=== PATIENT | female | born 1940 | race Caucasian/White ===

== ENCOUNTER → 2023-09-03 08:36 | Outpatient (REF) | payer OTHER, SELFPAY ==
[2023-09-03 09:56] LABS: ALT (SGPT) 17 U/L (0-35); AST (SGOT) 21 U/L (14-36); Albumin 3.5 g/dl (3.5-5.0); Alkaline Phosphatase 50 U/L (38-126); Blood Urea Nitrogen 14 mg/dl (7-17); Calcium 9.4 mg/dl (8.4-10.2); Carbon Dioxide 30 mmol/L (22-30); Chloride 100 mmol/L (98-107); Glucose 95 mg/dl (70-99); Sodium 140 mmol/L (135-145); Total Bilirubin 0.8 mg/dl (0.2-1.3); Total Protein 5.9 g/dl (6.3-8.2); eGFR > 60.00
== END ==
LOC: REG 08:36
PROVIDERS: ATTENDING PHYSICIAN Nurse Practitioner Family; FAMILY PHYSICIAN Family Medicine
DX: E11.40 Type 2 diabetes mellitus with diabetic neuropathy, unspecified (principal)
CPT/HCPCS: 36415; 80053

== ENCOUNTER → 2023-10-04 11:42 | Outpatient (REF) | payer OTHER, SELFPAY ==
[2023-10-04 15:35] LABS: Erythrocyte Sed Rate 11 mm/hour (0-20)
[2023-10-05 15:21] LABS: Angiotensin-1-converting Enzym 59 U/L (16-85)
== END ==
LOC: REG 11:42
PROVIDERS: ATTENDING PHYSICIAN Ophthalmology; FAMILY PHYSICIAN Family Medicine
DX: H47.293 Other optic atrophy, bilateral (principal)
CPT/HCPCS: 36415; 82164; 85652

== ENCOUNTER → 2023-11-21 11:29 | Outpatient (REF) | payer OTHER, SELFPAY | LOC: RAD 11:29 | PROVIDERS: ATTENDING PHYSICIAN Family Medicine | DX: R10.30 Lower abdominal pain, unspecified (principal); R10.9 Unspecified abdominal pain | CPT/HCPCS: 74177; Q9967 ==

== ENCOUNTER → 2023-12-16 09:58 | Outpatient (REF) | payer OTHER, SELFPAY | LOC: PET 09:58 | PROVIDERS: ATTENDING PHYSICIAN Family Medicine | DX: R91.1 Solitary pulmonary nodule (principal) | CPT/HCPCS: 78815; A9552 ==

== ENCOUNTER 2024-03-09 00:28 | Inpatient (IN) | payer OTHER, SELFPAY ==
[2024-03-08] VITALS (7 sets, daily range): BP systolic 106–151; BP diastolic 63–72; BMI 25.3
[2024-03-08 19:40] LABS: % Basophils 0.7 % (0-2); % Eosinophils 1.9 % (0-6); % Immature Granulocytes 0.7 % (0-0.5); % Monocytes 6.4 % (1.7-9.3); % Neutrophils 72.3 % (42.2-75.2); Absolute Basophils 0.1 10^3/uL (0-0.2); Absolute Eosinophils 0.2 10^3/uL (0-0.7); Absolute Immature Granulocytes 0.1 10^3/uL (0-0.05); Absolute Monocytes 0.7 10^3/uL (0.1-0.6); Absolute Neutrophils 7.9 10^3/uL (1.4-6.5); Hematocrit 37.1 % (37.0-47.0); Hemoglobin 13.3 g/dL (12.0-16.0); Mean Corp Hgb Conc. 35.8 g/dL (33.0-37.0); Mean Corpuscular Hgb 30.1 pg (27.0-31.0); Mean Corpuscular Volume 83.9 fL (81.0-99.0); Mean Platelet Volume 10.5 fL (7.4-10.4); Nucleated Red Blood Cells % 0 %; Platelet Count 237 10^3/uL (130-400); Red Blood Cell Count 4.42 10^6/uL (4.20-5.40); Red Cell Dist. Width 13.1 % (11.5-14.5); White Blood Cell Count 10.9 10^3/uL (4.8-10.8)
[2024-03-08 19:53] LABS: ALT (SGPT) 20 U/L (0-35); AST (SGOT) 36 U/L (14-36); Albumin 3.9 g/dl (3.5-5.0); Alkaline Phosphatase 47 U/L (38-126); Blood Urea Nitrogen 22 mg/dl (7-17); Calcium 9.7 mg/dl (8.4-10.2); Carbon Dioxide 23 mmol/L (22-30); Chloride 100 mmol/L (98-107); Estimated Creatinine Clearance 59 ml/min; Glucose 269 mg/dl (70-99); Lipase 52 U/L (23-300); Potassium 4.5 mmol/L (3.5-5.1); Sodium 136 mmol/L (135-145); Total Bilirubin 0.8 mg/dl (0.2-1.3); eGFR > 60.00
[2024-03-08] MEDS: ZOFRAN 4 MG IV (20:01)
[2024-03-08] MEDS: MORPHINE SULFATE 4 MG IV (20:03)
[2024-03-08 20:06] LABS: NT-proBNP 156 pg/ml; Troponin I < 0.012 ng/ml
[2024-03-08] MEDS: PROTONIX IV 40 MG IV (20:06)
--- NOTE | 2024-03-08 20:07 | ED.GENMED ---
History of Present Illness
General
Chief Complaint: Chest Pain
Source: patient
Exam Limitations: none
Time Seen by Provider: 03/08/24 19:10
Nursing documentation reviewed up to this point in time: agreed with
History of Present Illness
History of Present Illness:
83-year-old female history diabetes, presents with chest pain onset last evening after eating chicken pressure in her chest, some nausea into her armpits, today she ate normally felt okay but symptoms returned again after eating chicken, she feels
bloated has not had a bowel movement about a week, still has her gallbladder, no history of CAD, no fever or chills,
Past History
Past History
ED Past Medical History: HTN, Hypercholesterolemia, IDDM and Other (Rheumatoid arthritis, GI bleeding, Pleural effusion,)
ED Past Surgical History: Appendectomy and Gynecological (Hysterectomy); Negative Cholecystectomy
Social History
Tobacco: Non-smoker
Alcohol: None
Drug: None
Personal:
Living: alone
Employment: Retired
Family History
Family History: Other (Daughter with colon cancer. Daughter with lung cancer)
Review of Systems
Review of Systems
All Other Systems: Not applicable
Constitutional: Denies fever or fatigue
EENT: Reports no symptoms
Respiratory: Reports no symptoms; Denies cough or trouble breathing
Cardiac: Reports chest pain; Denies palpitations
ABD/GI: Reports abdominal pain and constipated; Denies nausea, diarrhea or black stools
: Reports no symptoms
Musculoskeletal: Reports no symptoms
Skin: Reports no symptoms
Neurological: Reports no symptoms
Endocrine: Reports no symptoms
Phy Exam
Physical Exam
Physical Exam:
Physical Exam
General: no apparent distress, not acutely ill
Neck: No jaundice
Heart: s1/s2 regular rate and rhythm, no murmur. equal radial pulses.
Lungs: no acute respiratory distress. clear bilaterally
Abdomen: Mild epigastric tenderness
Neuro: alert and oriented. no focal neurological deficits
Skin: no rash
Psychiatric: well kept. interactive and cooperative
Extremities: no edema. no calf tenderness.
Scores
Heart Score for Chest Pain Patients
STEMI patient?: No
History: Moderately Suspicious
ECG: Nonspecific Repolarization
Age: >/= 65 years
Risk Factors: 1 or 2 Risk Factors
Troponin: </= Normal Limit
Heart Score for Chest Pain Patients: 5
Heart Score Risk: 20.3% MACE over next 6 weeks
Course
Orders/Labs/Results
Orders:
Orders
03/08/24 19:04
Electrocardiogram (*1) Urgent
Reason for Study: Other
Other Reason for Exam: Respiratory Distress
Cardiac Monitoring- Treatment ONCE
EKG- Treatment ONCE
IV Insert/Care/Rem.- Treatment PRN
CR Chest - 2 Views Urgent
Comment:
Reason For Exam: respiratory distress
O2 Therapy [RESP] Urgent
Titrate/Wean O2 to maintain O2 sat greater than (%): 93
Special Instructions: TO MAINTAIN CONTINUOUS O2 SATS >/= 93%
Pulse Ox/cont/shift [RESP] Urgent
Quantity: 1
Special Instructions: continuous pulse ox
03/08/24 19:18
Complete Blood Count/With Diff Urgent
Comprehensive Metabolic Panel Urgent
Lipase Urgent
NT-proBNP Urgent
Troponin I Urgent
03/08/24 19:32
Add On- LAB Urgent
Tests Added?: lipase
03/08/24 19:44
Morphine Sulfate 4 mg IV NOW STA
Ondansetron Injectable [Zofran] 4 mg IV NOW STA
Pantoprazole [Protonix IV] 40 mg IV NOW STA
03/08/24 20:41
Iohexol [Omnipaque] See Protocol PO NOW STA
03/08/24 22:39
Troponin I Urgent
03/08/24 23:11
Electrocardiogram (*1) Urgent
Reason for Study: Chest Pain
EKG- Treatment ONCE
03/08/24 23:12
Aspirin 325 mg PO NOW STA
Heparin 4,000 units IV NOW STA
03/08/24 23:[address] See Dose Instructions PO NOW STA
Discontinue all Active Warfarin orders?: Yes
Nursing to Place Non Medication Order As Directed
Physician Order: PTT 6 hours after initial start of Heparin infusion
Above order entered?: Yes
03/08/24 23:15
Heparin 37095 Units/250 ml 25,000 units in 250 ml IV PER PROTOCOL
Weight to be used for heparin protocol in kilograms (kg):: 73.2
Protocol:: Cardiac Tx/Acute Coronary
PTT Goal Range to be used:: PTT 73 to 111 seconds
Order type:: Initial
INITIAL Infusion Dose (UNITS/KG/hr) & then follow protocol:: 12 units/kg/hr
Infusion Dose in UNITS/hr & then follow protocol (UNITS/hr):: 900
INFUSION RATE in mL/hr & then follow protocol (mL/hr):: 9
PTT less than or equal to 64 seconds:: Increase rate by 200 units/hr (+ 2 mL/hr)
PTT 64.1 to 72.9 seconds:: Increase rate by 100 units/hr (+ 1 mL/hr)
PTT 73 to 111 seconds:: Target Range. No change in rate.
PTT 111.1 to 130.9 seconds:: Decrease rate by 100 units/hr (- 1 mL/hr)
PTT 131 to 199.9 seconds:: HOLD for 1 hr. Then decrease rate by 200 units/hr (- 2 mL/hr)
PTT greater than or equal to 200 seconds:: HOLD for 2 hrs & Notify Provider. Then decrease by 200 units/hr (-
2 mL/hr)
Lab follow-up:: Each change, PTT q6h until 2 consecutive are therapeutic. Then PTT
daily.
03/08/24 23:24
PTT Urgent
Comment: Obtain baseline before beginning heparin infusion if not already collected
03/08/24 23:[address] See Dose Instructions IV DIRECTED
Abnormal Lab Results
03/08/24 03/08/24
19:18 22:39
WBC 10.9 H 10^3/uL
(4.8-10.8)
MPV 10.5 H fL
(7.4-10.4)
Abs Immat Gran (auto) 0.1 H 10^3/uL
(0-0.05)
Absolute Neuts (auto) 7.9 H 10^3/uL
(1.4-6.5)
Absolute Monos (auto) 0.7 H 10^3/uL
(0.1-0.6)
Immature Gran % 0.7 H %
(0-0.5)
Lymphocytes % 18.0 L %
(20.5-51.1)
BUN 22 H mg/dl
(7-17)
Glucose 269 H mg/dl
(70-99)
Troponin I 0.223 H* D ng/ml
Total Protein 6.0 L g/dl
(6.3-8.2)
03/08/24 19:18
03/08/24 19:18
Vital Signs
Initial and Last Documented VS:
Initial Vital Signs
BP
121/71
03/08/24 19:08
Last Documented Vital Signs
Temp Pulse Resp BP Pulse Ox
99.0 F 75 26 131/71 95
03/08/24 19:09 03/08/24 22:45 03/08/24 22:45 03/08/24 22:00 03/08/24 21:45
MDM/Problems Addressed
Differential Diagnosis Includes:
Gastritis, esophageal obstruction, biliary colic, bowel obstruction, partial bowel obstruction, ACS conceivably PE or dissection within the last
MDM/Problems Addressed:
Chest pain
Chronic conditions affecting care: DM and Previous abdomnial surgery
Acute Exacerbation and/or Progression of Chronic Illness: DM and Previous abdomnial surgery
*Radiology
Radiology exam reviewed: preliminary read by ED provider
*EKG
Interpreted by ED Provider?: Yes
Interpretation: abnormal
Comparison EKG: no comparison EKG present
Heart Rate: 78
Rate: normal
Rhythm: sinus
Ischemia: no ischemia
*Speech Teacher Interpretation
Rate: normal and tachycardiac
Interpretation: normal
Heart Rate: 78
Rhythm: sinus
*Critical Care Note
Total Time (30-74mins, 75-104mins- exclusive of procedures): 31
Update Note
Update Note:
Update labs are noted patient's symptoms were postprandial, will check CT scan to evaluate biliary tract also for abdominal obstruction
1115
Second troponin noted consistent with ACS, will hold on CT scan at this point would not want to get a double dye load assuming she would get eventual cath, started on aspirin and heparin, repeat her EKG
ED Attending Note
-
Portions of this chart may have been created with voice recognition software.� Occasional wrong word or��sound alike� substitutions may have occurred due to the inherent limitations of voice recognition software.
Discharge Plan
Departure
Patient Disposition: Admit
Date of Disposition: 03/08/24
Time of Disposition: 23:33
Admit to: IVU
Presentation/result/management discussed w/ accepting MD/DO: Hospitalist
Patient with high blood pressure during this ER visit?: No
Condition: Fair
Discharge Problem:
ACS (acute coronary syndrome)
Prescriptions:
No Action
calcium carbonate [Tums] 200 mg calcium (500 mg) Tablet,Chewable
200 mg PO TID PRN (Reason: heartburn)
acetaminophen [Pain Reliever ES(acetaminophn)] 500 mg tablet
1,000 mg PO TIDPRN PRN (Reason: mild pain)
prednisone 20 mg Tablet
20 mg PO DAILY
insulin aspart U-100 [Novolog FlexPen U-100 Insulin] 100 unit/mL (3 mL) Insulin Pen
5 unit SC BID
Patient Comments:
03/08/24: take for breakfast and lunch
insulin aspart U-100 [Novolog FlexPen U-100 Insulin] 100 unit/mL (3 mL) Insulin Pen
8 unit SC QPM
insulin glargine [Lantus Solostar U-100 Insulin] 100 unit/mL (3 mL) Insulin Pen
40 unit SC HS
Referrals:
Gely Youngblood MD [Family Provider] -
Interventions
Interventions:
*Risk Screen - Suicide Last Done: 03/08/24 19:09
*General Assessment Last Done: 03/08/24 19:09
*Neglect/Abuse Screening Last Done: 03/08/24 19:09
ED- Fall Risk Assessment Last Done: 03/08/24 19:41
*ED COVID-19 Vaccine History Last Done: 03/08/24 19:09
ED- Cardiac Assessment Last Done: 03/08/24 19:41
Discharge Date and Time
Print Language: KYRGYZ
[2024-03-08] MEDS: OMNIPAQUE 50 ML PO (21:15)
[2024-03-08 23:11] LABS: Troponin I 0.223 ng/ml
[2024-03-08 23:41] LABS: APTT 24.2 Sec (23.4-35.0)
--- NOTE | 2024-03-08 23:54 | HPS.HSE ---
Family Physician
-
Family Physician: Gely Youngblood
Chief Complaint
-
Chest pain postprandially starting today
History of Present Illness
This is an 83-year-old female with a past medical history of insulin-dependent diabetes, sarcoidosis, hypertension and a prior hip replacement surgery 5 years ago who presents to the emergency department with an acute onset of chest pain.
Patient reported that she had been in usual state of health up until today when she started noticing chest pain. She reports that after eating a fairly substantial dinner she started having chest pain that radiates across bilateral upper quadrants
and then to bilateral shoulders. She denies any jaw pain. She reports that she has chronic back pain and there was no new radiation to her back. She reports some nausea. She reports increased work of breathing as well. She denies having
lightheadedness dizziness or palpitations. She called [facility] and was brought to the emergency department for evaluation.
Patient denies any prior history of CAD. She denies any recent exertional dyspnea, PND, lower extremity swelling, palpitations, nausea vomiting diarrhea. She had no recent echo or stress test.
On arrival in the ED the patient was afebrile and hemodynamically stable. ECG showed normal sinus rhythm at rate of [address] or T wave changes. Initial troponin was 0.012 however troponin 3 hours later was elevated to 0.2-3.
Patient still reports her chest pain of around 5. Chemistries were otherwise unremarkable. CBC also within normal limits.
Medical History
Past Medical History
Past Medical History: Reports IDDM
Additional Past Medical History:
Sarcoidosis
Past Surgical History: Reports Orthopedic
Social History
Tobacco: Non-smoker
Alcohol: None
Drug: None
Personal:
Living: Alone
Employment: Retired
Family History
Family History: Not pertinent
Allergies / Home Medications
Allergies reflects when Allergies were last updated in [employer].
Home Medications with original date entered in [employer]
Allergy/Medication List:
Allergies
Allergy/AdvReac Type Severity Reaction Status Date / Time
adhesive Allergy blisters Verified 03/08/24 19:09
adhesive tape Allergy redness,sor Verified 03/08/24 19:09
e
Home Medications
acetaminophen 500 mg tablet (Pain Reliever Extra Strength (acetaminophen)) 1,000 mg PO TIDPRN PRN mild pain 10/11/22
calcium carbonate (Tums) 200 mg PO TID PRN heartburn 10/11/22
insulin aspart U-100 100 unit/mL (3 mL) subcutaneous pen (Novolog FlexPen U-100 Insulin aspart) 5 unit SC BID 03/08/24
insulin aspart U-100 100 unit/mL (3 mL) subcutaneous pen (Novolog FlexPen U-100 Insulin aspart) 8 unit SC QPM 03/08/24
insulin glargine 100 unit/mL (3 mL) subcutaneous pen (Lantus Solostar U-100 Insulin) 40 unit SC HS 03/08/24
prednisone 20 mg tablet 20 mg PO DAILY 03/08/24
Review of Systems
-
History Source: Patient
Constitutional: Reports No Symptoms
EENT: Reports No Symptoms
Respiratory: Reports No Symptoms
Cardiac: Reports Chest Pain
Abdomen/GI: Reports Nausea
: Reports No Symptoms
Musculoskeletal: Reports No Symptoms
Skin: Reports No Symptoms
Neurological: Reports No Symptoms
Endocrine: Reports No Symptoms
Hematologic/Lymphatic: Reports No Symptoms
Psych: Reports No Symptoms
Physical Exam
Vital Signs
Vital Signs
Temp Pulse Resp BP Pulse Ox
99.0 F 75 26 131/71 95
03/08/24 19:09 03/08/24 22:45 03/08/24 22:45 03/08/24 22:00 03/08/24 21:45
Physical Exam
General: Well Developed, Well Nourished and No Apparent Distress
HEENT: NormoCephalic, Anicteric, Moist mucous membranes, Atraumatic and PERRLA
Respiratory: Clear
Cardiac: S1/S2
Breast: Deferred by me
GI: Soft, Non Tender and Non Distended
Genito-urinary: Deferred by me
Musculoskeletal: No Clubbing, No Cyanosis and No Edema
Skin: Warm
Neuro: AO x 3
Hematologic/Lymphatic: No Lymphadenopathy
Psych: Calm
Laboratory Results
-
03/08/24 19:18
03/08/24 19:18
Laboratory Results
APTT 24.2 Sec (23.4-35.0) 03/08/24 23:24
Total Bilirubin 0.8 mg/dl (0.2-1.3) 03/08/24 19:18
AST 36 U/L (14-36) 03/08/24 19:18
ALT 20 U/L (0-35) 03/08/24 19:18
Alkaline Phosphatase 47 U/L (38-126) 03/08/24 19:18
Troponin I 0.223 ng/ml H* D 03/08/24 22:39
Lipase 52 U/L (23-300) 03/08/24 19:18
Data Reviewed
-
Diagnostic Radiology: Image Personally Visualized and interpreted
Medical Tests (Nuc Med, Echo, EKG etc): Image Personally Visualized and interpreted
Lab Data: Labs Reviewed by me
Impression/Plan
-
IMPRESSION:
PLAN:
1. ACS - Acute onset chest pain post-prandially lasting a few hours. Trop elevated to 0.2. History of sarcoid and insulin dependent diabetes but no known CAD. Hemodynamically stable and in no acute distress
- admit to telemetry
- aspirin 324 x 1, continue daily
- ntg prn chest pain
- start heparin gtt
- ppi daily for now
- cardiology consult
- echo in am, check lipid panel and a1c
2. DM II - Takes lantus 40 HS, and humolog 5, 5, 8.
- continue lantus at 20 hs, continue pre meal insulin per regimen with sliding scale insulin
3. Sarcoid
- patient on prednisone 20mg daily
DVT PPX - on heparin gtt
Code Status - DNR
[2024-03-09] VITALS (11 sets, daily range): BP systolic 126–202; BP diastolic 66–120; BMI 24.8
[2024-03-09] MEDS: HEPARIN 4000 UNITS IV (00:34)
[2024-03-09] MEDS: HEPARIN 25000 UNITS/250 ML IV ×2 (00:35→22:36)
[2024-03-09 02:34] LABS: Glucose - Point of Care 252 mg/dl (70-99)
[2024-03-09] MEDS: LANTUS 0.2 UNITS SC ×2 (03:06→22:27)
--- NOTE | 2024-03-09 03:28 | PTCARENOTE ---
Pt admitted to 2250 as a tele pt with complaints of cp. Pt ambulated x2 assist with SPC to bedside. Heparin gtt running as ordered. SR on the monitor.
[2024-03-09 06:36] LABS: Hematocrit 38.3 % (37.0-47.0); Hemoglobin 13.2 g/dL (12.0-16.0); Mean Corp Hgb Conc. 34.5 g/dL (33.0-37.0); Mean Corpuscular Hgb 30.1 pg (27.0-31.0); Mean Corpuscular Volume 87.2 fL (81.0-99.0); Mean Platelet Volume 10.9 fL (7.4-10.4); Platelet Count 188 10^3/uL (130-400); Red Blood Cell Count 4.39 10^6/uL (4.20-5.40); Red Cell Dist. Width 13.1 % (11.5-14.5); White Blood Cell Count 8.7 10^3/uL (4.8-10.8)
[2024-03-09 06:40] LABS: INR 1.17; PT 14.8 Sec (11.4-14.6)
[2024-03-09 06:41] LABS: APTT 57.9 Sec (23.4-35.0)
[2024-03-09 06:57] LABS: Blood Urea Nitrogen 17 mg/dl (7-17); Calcium 9.2 mg/dl (8.4-10.2); Carbon Dioxide 28 mmol/L (22-30); Chloride 102 mmol/L (98-107); Estimated Creatinine Clearance 69 ml/min; Glucose 209 mg/dl (70-99); HDL Cholesterol 46 mg/dl; LDL Cholesterol, Calculated 68 mg/dl; Potassium 4.2 mmol/L (3.5-5.1); Sodium 137 mmol/L (135-145); Total Cholesterol 152 mg/dl (50-199); Triglyceride 191 mg/dl (10-149); Very Low Density Lipoprotein 38 mg/dl (0-30); eGFR > 60.00
[2024-03-09 07:30] LABS: Glucose - Point of Care 186 mg/dl (70-99)
--- NOTE | 2024-03-09 08:06 | W.PN.HOSP.TC ---
Today's Communication/Plan
-
see bold
Assessment / Plan
Assessment / Plan
Gen: NAD, AAOx3.
Eyes: EOMI, PERRLA, no scleral icterus.
Neck: supple.
CV: RRR, +S1/S2, 1/6 systolic murmur
Resp: CTAB, no rales, wheezes, or rhonchi.
Abd: +BS, soft, NT, ND
Skin: No rashes.
Neuro: CN 2-12 intact, non-focal.
Psych: Normal mood and affect.
Acute NSTEMI:
-trop increasing, now 2.030
-ASA given in ER
-cont heparin gtt
-LDL 68
-check echo
-for cath tomorrow as per discussion with Dr. Thomas
Other problems:
DM2: Cont Lantus/premeal insulin, SSI/accuchecks
Sarcoidosis: Cont Prednisone
DNR/heparin gtt
Anticipated Discharge: 24 - 48 hours
Subjective/Interval History
-
Date of Service: March 09, 2024
Currently denies CP.
Objective Data
-
Labs:
Laboratory Results
03/08/24 03/09/24 03/09/24
23:24 06:06 06:07
WBC 8.7
Hgb 13.2
Hct 38.3
Plt Count 188 D
PT 14.8 H
INR 1.17
APTT 24.2 57.9 H
Sodium 137
Potassium 4.2
Chloride 102
Carbon Dioxide 28
BUN 17
Creatinine 0.6
Glucose 209 H
Calcium 9.2
03/09/24
06:36
WBC
Hgb
Hct
Plt Count
PT Cancelled
INR Cancelled
APTT Cancelled
Sodium
Potassium
Chloride
Carbon Dioxide
BUN
Creatinine
Glucose
Calcium
Vital Signs:
Vital Signs
Temp Pulse Resp BP Pulse Ox
97.6 F 77 18 145/79 97
03/09/24 07:23 03/09/24 07:26 03/09/24 07:23 03/09/24 07:26 03/09/24 07:23
[2024-03-09] MEDS: NOVOLOG FLEXPEN-MODERATE RESISTANCE 1 UNITS SC (08:19)
[2024-03-09] MEDS: NOVOLOG FLEXPEN 5 UNITS SC ×2 (08:19→12:38)
[2024-03-09] MEDS: DESENEX/MITRAZOL/ZEASORB 1 APPLIC TOPICAL ×2 (08:20→20:36)
[2024-03-09] MEDS: DELTASONE 20 MG PO (08:20)
[2024-03-09] MEDS: PROTONIX 40 MG PO (08:21)
[2024-03-09] MEDS: FLUSH (NSS) 1 FLUSH IV (08:21)
[2024-03-09] MEDS: ASPIR LOW (ENTERIC COATED) 81 MG PO (08:36)
[2024-03-09] MEDS: LOPRESSOR 12.5 MG PO ×2 (08:36→20:36)
--- NOTE | 2024-03-09 09:16 | CON.CAR ---
Consultation
Consultation Request
Date/Time Consultation Requested: 03/09/24
Date/Time Consultation Performed: 03/09/24
Requesting Provider: Juan
Performing Provider: Martha
Reason for Consultation: NSTEMI
Medical History
-
Chief Complaint: chest pain
History of Present Illness:
83-year-old woman past medical history of blood pressure diabetes who presents following an episode of substernal chest discomfort found to have elevated troponin consistent with NSTEMI for which cardiology is consulted
Patient tells me that she was in her usual state of health eating a chicken platter dinner on 03/08/2024 when she developed bandlike chest pressure which she rates at 8-9 out of 10. Patient lives alone and she was concerned and therefore called
[facility] and was transported by EMS to [place] emergency department. Tells me that she received sublingual nitro en route and that seemed to improve her chest discomfort and that is much more mild now, approximately 3 out of 10. With concern
for ACS she was started on heparin drip and admitted to the IVU for further management.
Initial troponin 0.01 up trended to 0.2 and then to 2.0. ECGs reviewed, no overt ischemic changes.
Patient also seems to have some ongoing GI issues, tells me she has not had a bowel movement in several weeks at this point. Also reports thick mucus in the back of her throat when lying flat, discussed with her that I am not sure if this
represents acid reflux or sinus drainage.
PMHx:
insulin-dependent diabetes
sarcoidosis
hypertension
hip replacement
Past Medical History
Past Medical History: Other (as above)
Past Surgical History: Other (as above)
Social History
Tobacco: Non-Smoker
Personal:
Living: Alone
Family History
Family History: Reviewed & Not Pertinent
Allergies / Home Medications
Allergy/AdvReac Type Severity Reaction Status Date / Time
adhesive Allergy blisters Verified 03/08/24 19:09
adhesive tape Allergy redness,sor Verified 03/08/24 19:09
e
�Medication �Instructions �Recorded �Confirmed �Type
acetaminophen 500 mg tablet (Pain 1,000 mg PO TIDPRN PRN mild pain 10/11/22 03/08/24 History
Reliever Extra Strength
(acetaminophen))
calcium carbonate (Tums) 200 mg PO TID PRN heartburn 10/11/22 03/08/24 History
insulin aspart U-100 100 unit/mL 5 unit SC BID 03/08/24 03/08/24 History
(3 mL) subcutaneous pen (Novolog
FlexPen U-100 Insulin aspart)
insulin aspart U-100 100 unit/mL 8 unit SC QPM 03/08/24 03/08/24 History
(3 mL) subcutaneous pen (Novolog
FlexPen U-100 Insulin aspart)
insulin glargine 100 unit/mL (3 40 unit SC HS 03/08/24 03/08/24 History
mL) subcutaneous pen (Lantus
Solostar U-100 Insulin)
prednisone 20 mg tablet 20 mg PO DAILY 03/08/24 03/08/24 History
Review of Systems
-
History Source: Patient
All other systems: Negative unless noted
Physical Exam
Vital Signs
Temp Pulse Resp BP Pulse Ox
97.6 F 77 18 145/79 97
03/09/24 07:23 03/09/24 07:26 03/09/24 07:23 03/09/24 07:26 03/09/24 07:23
Lab Results
03/09/24 06:07
03/09/24 06:06
Troponin I 2.030 ng/ml H* D 03/09/24 06:06
Pnt-E-Prqmscxnqlh Pept 156 pg/ml 03/08/24 19:18
Physical Exam
General: Well Developed
HEENT: Normocephalic
Respiratory: Clear
Cardiac: S1/S2 and Murmur (2/6 FILOMENA at the base)
Breast: Deferred by me
GI: Soft
Musculoskeletal: No Edema
Skin: Warm and Dry
Neuro: Awake and Alert
Psych: Calm
Impression / Plan
-
Box Printing Machine Operator: None
Assessment:
NSTEMI
IDDM2
HTN
HLD
sarcoidosis
Plan:
-Presenting with bandlike chest discomfort on the evening of 03/08/2024 found to have rising troponin consistent with NSTEMI
-Serial ECGs performed, no ischemic changes present
-Medical management with aspirin, statin, beta-kamaljit and heparin drip
-As needed sublingual nitro ordered, reporting mild chest discomfort, may need to start nitro drip
-Monitor on tele
-Check TTE in AM
-N.p.o. at midnight for left heart catheterization on 03/10/2024
Discussed with nursing and hospitalist
Data Reviewed
-
EKG: Tracing Personally Visualized and interpreted
Radiology: Image Personally Visualized and interpreted
Labs: Labs Reviewed by me
Old Records: Reviewed
--- NOTE | 2024-03-09 10:32 | PTCARENOTE ---
Received patient this morning resting in bed, denied any chest pain or sob to me however when seen by cardiology did tell Dr. Shah her chest pain was down to a 4/10 as compared to what it was when she came to the ED. Patient complaining to me of
being unable to move her bowels for a 'while', > a week. Tt to Dr. Martinez for laxatives. Patient tolerated sitting oob in the chair and ate a full breakfast, resting back in bed now. IV heparin infusing and increased as per protocol. Will continue to
monitor PTT and repeat troponin.
[2024-03-09] MEDS: CITROMA 300 ML PO (11:03)
[2024-03-09 12:26] LABS: Glucose - Point of Care 298 mg/dl (70-99)
[2024-03-09] MEDS: NOVOLOG FLEXPEN-MODERATE RESISTANCE 5 UNITS SC (12:39)
--- NOTE | 2024-03-09 14:13 | PTCARENOTE ---
Patient given mag citrate, did not want lunch, drank coffee and prune juice. Complained of feeling nauseated, leaking watery stool. Assisted to the commode and passed a large amount of soft brown stool with relief. Resting in bed, visiting with
family now.
[2024-03-09 16:03] LABS: APTT 56.8 Sec (23.4-35.0)
[2024-03-09 17:03] LABS: Glucose - Point of Care 211 mg/dl (70-99)
[2024-03-09] MEDS: NOVOLOG FLEXPEN-MODERATE RESISTANCE 3 UNITS SC (17:13)
[2024-03-09] MEDS: NOVOLOG FLEXPEN SC (17:14)
[2024-03-09] MEDS: LIPITOR 20 MG PO (17:38)
--- NOTE | 2024-03-09 19:01 | PTCARENOTE ---
Patient had a large bowel movement earlier in the shift after mag citrate and prune juice. Patient now having multiple episodes of incontinence of loose brown stool in her attends. No appetite at dinner, AC novolog insulin held, patient drinking PO
liquids. No complaints of chest pain or sob. Aware she is NPO after midnight for cardiac cath.
[2024-03-09] MEDS: ZOFRAN 4 MG IV (20:33)
[2024-03-09] MEDS: TYLENOL 650 MG PO (20:34)
[2024-03-09 21:04] LABS: Glucose - Point of Care 247 mg/dl (70-99)
--- NOTE | 2024-03-09 22:01 | PTCARENOTE ---
Pt with complaints of increased abdominal cramping, incontinence with liquid stools, and nausea without emesis; as well as 9/10 chronic lower back pain. MITZI Salinas contacted, orders obtained for Tylenol, Zofran, and Diclofenac cream.
Medications provided per SEP. Warm blankets provided for the abd cramping and a mini bed bath and lotion provided to help with lower back pain. Pt appears to be resting in bed more comfortable at this time.
[2024-03-09] MEDS: DICLOFENAC 1% TOPICAL GEL 100 GRAM TOPICAL (22:24)
[2024-03-09 22:56] LABS: APTT 100.3 Sec (23.4-35.0)
[2024-03-10 03:58] VITALS: BP 144/84
--- NOTE | 2024-03-10 04:05 | PTCARENOTE ---
Pt up frequently with incontinent stool episodes. The last two BMs this morning were more watery; questionable for small amounts of urine passing. BS completed for 964ml. Straight cathed x2 for 1100ml. UA sent.
[2024-03-10 04:17] LABS: Urine Albumin Trace (Neg - Trace); Urine Bilirubin Negative (Negative); Urine Character Slightly Cloudy (Clear); Urine Color Amber; Urine Glucose 2+ (Negative); Urine Ketone Negative (Negative); Urine Leukocyte 2+ (Negative); Urine Nitrite Negative (Negative); Urine Occult Blood 4+ (Negative); Urine Urobilinogen Negative (Neg - 1+)
[2024-03-10 05:03] LABS: Urine Yeast Many (Negative)
[2024-03-10 05:04] LABS: Urine Amorphous Seen; Urine White Cell >100 /HPF (0-5)
[2024-03-10 05:05] LABS: Urine Red Blood Cell >100 /HPF (0-2)
[2024-03-10 07:30] VITALS: BP 119/76
[2024-03-10 07:32] VITALS: BMI 24.2
[2024-03-10 07:54] LABS: Glucose - Point of Care 230 mg/dl (70-99)
--- NOTE | 2024-03-10 08:00 | PTCARENOTE ---
Assumed care of pt from prev nsg shift; Pt AAOX3, appears mildly forgetful. Pt w/no c/o CP or SOB this AM. Pt's VS stable w/HR 80's-90's & BP this AM 119/76. Pt is SR on telemetry monitoring. Pt w/Heparin drip infusing through patent IV line as
ordered. Report given to Wesly in the Cardiac high density press laborer & pt advised that the nurses would be taking her over to the high density press laborer shortly. Pt verbalized her understanding. Pt w/bed alarm in place & call yeboah within reach. Plan of care ongoing.
[2024-03-10] MEDS: NOVOLOG FLEXPEN-MODERATE RESISTANCE 3 UNITS SC ×2 (08:06→14:58)
[2024-03-10] MEDS: DELTASONE 20 MG PO (08:07)
[2024-03-10] MEDS: PROTONIX 40 MG PO (08:07)
[2024-03-10] MEDS: DICLOFENAC 1% TOPICAL GEL 2 GRAM TOPICAL ×4 (08:07→23:11)
[2024-03-10] MEDS: ASPIR LOW (ENTERIC COATED) 81 MG PO (08:07)
[2024-03-10] MEDS: LOPRESSOR 12.5 MG PO ×2 (08:07→20:55)
[2024-03-10] MEDS: DESENEX/MITRAZOL/ZEASORB 1 APPLIC TOPICAL ×2 (08:07→20:56)
[2024-03-10] MEDS: NOVOLOG FLEXPEN 5 UNITS SC ×2 (08:08→14:58)
--- NOTE | 2024-03-10 08:53 | W.PN.HOSP.TC ---
Today's Communication/Plan
-
see bold
Assessment / Plan
Assessment / Plan
Gen: NAD, AAOx2.
Eyes: EOMI, PERRLA, no scleral icterus.
Neck: supple.
CV: remains RRR, +S1/S2, 1/6 systolic murmur
Resp: remains CTAB, no rales, wheezes, or rhonchi.
Abd: +BS, soft, NT, ND
Skin: No rashes.
Neuro: CN 2-12 intact, non-focal.
Psych: Normal mood and affect.
Acute NSTEMI:
-trop peaked at 2.030, now trending down
-ASA given in ER
-cont heparin gtt
-LDL 68
-check echo
-for cath today if cleared by GI and Uro (pt reports hematuria and hematochezia)
-case discussed at length with cardiology
Other problems:
DM2: Cont Lantus/premeal insulin, SSI/accuchecks
Sarcoidosis: Cont Prednisone
DNR/heparin gtt
Total time spent on today's encounter was 50 minutes which included time spent in counseling the patient/family regarding diagnosis and treatment plan as listed above, goals of care, and symptom management. Case was discussed with nursing staff,
specialists, and care coordinators/case management. All labs and imaging personally reviewed by me. Remainder the time spent in detailed review of previous records, lab data, imaging, and other medical provider documentation.
Anticipated Discharge: 24 - 48 hours
Subjective/Interval History
-
Date of Service: March 10, 2024
Denies CP. When asked about SOB pt says 'maybe some.' When asked about hematochezia and hematuria the pt states she has both.
Objective Data
-
Labs:
Laboratory Results
03/09/24 03/10/24 03/10/24
22:30 04:01 11:50
APTT 100.3 H 52.0 H Pending
Vital Signs:
Vital Signs
Temp Pulse Resp BP Pulse Ox
98.6 F 91 18 119/76 98
03/10/24 07:32 03/10/24 07:30 03/10/24 07:32 03/10/24 07:30 03/10/24 07:32
I&O
03/09/24 03/10/24 03/11/24
06:59 06:59 06:59
Intake Total 600 / 600
Output Total 1100 / 1100
Balance -500 / -500
--- NOTE | 2024-03-10 10:04 | CON.GI ---
Addendum entered and electronically signed by MITZI Vázquez 03/10/24 13:20:
reviewed with Dr. Dye ,Juan Alcaraz. Plan for colonoscopy in AM. heparin has been held per urology.
Addendum entered and electronically signed by Jay Gaming MD 03/10/24 12:35:
I saw and examined the patient.
The PUBLIC RELATIONS MANAGER or PA's note was reviewed and I agree with the note.
Comment: 83yo female admitted with CP, troponin 2, started on heparin gtt and noted to pass blood per rectum and hematuria. She reports intermittent rectal bleeding over the last several months and was thinking of setting up GI follow up. She had
colonoscopy in 2019 that found two adenomas, 5mm and 10mm. She also reports LLQ pain over the last several months and constipation. She was planned to have catheterization today, but given the bleeding, consults were requested from GI and Urology.
Rectal exam reveals external hemorrhoids
Recommendations:
If OK from cardiac standpoint, recommend colonoscopy to evaluate source of bleeding prior to catheterization and potential need for uninterrupted plavix.
Etiology could be hemorrhoidal, ischemic colitis, diverticular, or malignancy (less likely given recent colonoscopy)
Hold heparin gtt prior to colonoscopy
Original Note:
Consultation
-
Date/Time Consultation Requested: 03/10/24 0840
Date/Time Consultation Performed: 03/10/24 1000
Requesting Provider: Matt Martinez MD
Performing Provider: MITZI Hurtado, Jay Gaming MD
Reason for Consultation: rectal bleeding
Medical History
Chief Complaint / HPI
Chief Complaint: rectal bleeding
History of Present Illness:
Pt is a 83yo with hx sarcoidosis, IDDM, RA, lung nodule, hip replacement with onset of chest pain with elevated troponin up to 2.030 with concern for NSTEMI after admission and improved with nitro. Plan for cath today but noted with hematuria and
hematochezia. On admission noted with hbg 13.3. Last EGD 07/2020 with abnormal motility concern for presbyesophagus, chronic gastritis, neg bx, colonoscopy 2020 with hemorrhoids, TA polyps, with 10mm polyp removed with hot snare and clip placed.
Pt poor historian but noted with complaints of recent rectal bleeding. She states she sees blood about 2-3 times per week with BM's. She also reported to nursing staff constipation with no stools for several days prior to admission. She was given
several laxatives and noted brown stool and red blood.
She otherwise denies any odynophagia, dysphagia, GERD, nausea, vomiting, abdominal pain, or diarrhea. Occasional NSAID use and on daily Prednisone. No anticoagulation use prior to admission.
Past Medical History
Past Medical History: IDDM and Other (sarcoidosis, RA, lung nodule )
Past Surgical History: Orthopedic (hip replacement )
Social History
Tobacco: Non-Smoker
Alcohol: None
Drug: None
Living: Alone
Employment: Retired
Family History
Family History: Other (daughter with colon CA, daughter with lung CA)
Allergies / Home Medications
Allergy/AdvReac Type Severity Reaction Status Date / Time
adhesive Allergy blisters Verified 03/08/24 19:09
adhesive tape Allergy redness,sor Verified 03/08/24 19:09
e
�Medication �Instructions �Recorded
acetaminophen 500 mg tablet (Pain 1,000 mg PO TIDPRN PRN mild pain 10/11/22
Reliever Extra Strength
(acetaminophen))
calcium carbonate (Tums) 200 mg PO TID PRN heartburn 10/11/22
insulin aspart U-100 100 unit/mL 5 unit SC BID Diabetes 03/08/24
(3 mL) subcutaneous pen (Novolog
FlexPen U-100 Insulin aspart)
insulin aspart U-100 100 unit/mL 8 unit SC QPM Diabetes 03/08/24
(3 mL) subcutaneous pen (Novolog
FlexPen U-100 Insulin aspart)
insulin glargine 100 unit/mL (3 40 unit SC HS Diabetes 03/08/24
mL) subcutaneous pen (Lantus
Solostar U-100 Insulin)
prednisone 20 mg tablet 20 mg PO DAILY INFLAMMATION 03/08/24
Review of Systems
-
History Source: Patient
Constitutional: Reports Fatigue
EENT: Reports No Symptoms
Respiratory: Reports No Symptoms
Cardiac: Reports No Symptoms
Abdomen/GI: Reports Constipated and Bloody Stools
: Reports Bleeding
Musculoskeletal: Reports Joint Pain
Skin: Reports No Symptoms
Neurological: Reports Weakness
Endocrine: Reports No Symptoms
Hematologic/Lymphatic: Reports Bleeding
Vital Signs
Temp Pulse Resp BP Pulse Ox
98.6 F 91 18 119/76 98
03/10/24 07:32 03/10/24 07:30 03/10/24 07:32 03/10/24 07:30 03/10/24 07:32
Physical Exam
Exam
General: Other (elderly female no acute distress sleepy but arousable )
HEENT: Normocephalic and Anicteric
Respiratory: Clear
Cardiac: Regular Rhythm and Murmur
GI: Soft, Non Tender and Non Distended
Rectal: Red, Hem Positive and Other (hemorroids with slight rectal prolapse )
Musculoskeletal: No Clubbing and No Cyanosis
Skin: Warm and Dry
Neuro: Other (forgetful, sleepy but arousable and answering most questions )
Psych: Calm
Results
WBC 8.7 10^3/uL (4.8-10.8) 03/09/24 06:07
Hgb 13.2 g/dL (12.0-16.0) 03/09/24 06:07
Hct 38.3 % (37.0-47.0) 03/09/24 06:07
MCV 87.2 fL (81.0-99.0) 03/09/24 06:07
Plt Count 188 10^3/uL (130-400) D 03/09/24 06:07
Absolute Neuts (auto) 7.9 10^3/uL (1.4-6.5) H 03/08/24 19:18
PT Cancelled 03/09/24 06:36
INR Cancelled 03/09/24 06:36
APTT 52.0 Sec (23.4-35.0) H 03/10/24 04:01
Sodium 137 mmol/L (135-145) 03/09/24 06:06
Potassium 4.2 mmol/L (3.5-5.1) 03/09/24 06:06
Chloride 102 mmol/L (98-107) 03/09/24 06:06
Carbon Dioxide 28 mmol/L (22-30) 03/09/24 06:06
BUN 17 mg/dl (7-17) 03/09/24 06:06
Creatinine 0.6 mg/dL (0.6-1.0) 03/09/24 06:06
Calcium 9.2 mg/dl (8.4-10.2) 03/09/24 06:06
Total Bilirubin 0.8 mg/dl (0.2-1.3) 03/08/24 19:18
AST 36 U/L (14-36) 03/08/24 19:18
ALT 20 U/L (0-35) 03/08/24 19:18
Alkaline Phosphatase 47 U/L (38-126) 03/08/24 19:18
Lipase 52 U/L (23-300) 03/08/24 19:18
Diagnostic Image Results:
03/09/24 CXR
1. No radiographic evidence for acute cardiopulmonary disease.
2. Severe calcific atherosclerotic plaque in the coronary arteries and thoracic aorta.
3. Stable 1.4 cm solid pulmonary nodule in the left lower lobe.
4. Multiple chronic healed left lateral rib fractures.
Prior GI Procedures:
07/2020- EGD - Abnormal esophageal motility, suspicious for
presbyesophagus.
- Z-line irregular, 38 cm from the incisors. Biopsied.
- Chronic gastritis. Biopsied.
- Normal duodenal bulb.
bx- neg h pylori and metaplasia
07/2019 colonoscopyy - Hemorrhoids found on perianal exam.
- One 5 mm polyp in the distal transverse colon, removed
with a cold snare. Resected and retrieved.
- One 10 mm polyp in the mid transverse colon, removed
with a hot snare. Resected and retrieved. Injected. Clip
was placed.
bx tubular adenoma
Assessment / Plan
-
Pt is a 83yo with hx sarcoidosis, IDDM, RA, lung nodule, hip replacement with onset of chest pain with elevated troponin up to 2.030 with concern for NSTEMI after admission and improved with nitro. Plan for cath today but noted with hematuria and
hematochezia. On admission noted with hbg 13.3. Last EGD 07/2020 with abnormal motility concern for presbyesophagus, chronic gastritis, neg bx, colonoscopy 2019 with hemorrhoids, TA polyps, with 10mm polyp removed with hot snare and clip placed.
Pt poor historian but noted with complaints of recent rectal bleeding. She states she sees blood about 2-3 times per week with BM's. She also reported to nursing staff constipation with no stools for several days prior to admission. She was given
several laxatives and noted brown stool and red blood. On prednisone and occasional NSAIDs.
-rectal bleeding
-hematuria
-chest pain with increased troponin- NSTEMI
other med problems:
-IDDM
-sarcoidosis on prednisone
-presbyesophagus
-hx colon polyps
-RA
-lung nodule
-hip replacement
PLAN:
etiology of rectal bleeding related to local source-- hemorrhoids, ? prolapse, vs other
pt was on heparin gtt on admission
pt with multiple stools overnight with laxative use
rectal exam still with red blood
trend hbg and stool record
will review with Dr. gaming and then cardiology as still with red blood in exam today as plan was for cath today
awaiting urology input as also noted hematuria
-
-
Thank you for consultation and allowing me to participate in the patient's care. Please call the fashion illustrator GI physician during the after hours with any questions or concerns.
[2024-03-10 11:40] LABS: Glycohemoglobin (HgbA1c) 9.3 % (4.0-5.6)
[2024-03-10 12:49] VITALS: BP 117/72
--- NOTE | 2024-03-10 13:26 | W.PN.CARDCBS ---
Today's Communication / Plan
-
Chief Load Dispatcher: None, initial consult seen by Dr. Julius Thomas
Assessment:
NSTEMI--Presenting with bandlike chest discomfort on the evening of 03/08/2024 with peak troponin I of 2.030, now chest pain free and trops downtrending
Hematuria and purulent drainage and inflammation in bladder on bedside cystoscopy on 03/10/24
Hematochezia and BRBPR, GI consult with plan for colonscopy on 03/10/24
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
Hypertension
Hyperlipidemia
Sarcoidosis
Recommendations/plan:
1. Serial ECGs performed, no acute ischemic changes present.
2. Medical management with aspirin, statin, beta-kamaljit and heparin drip.
3. Multiple lengthy discussions were had with the patient and she is a very poor historian with memory deficits and very tangential conversation. Through this she noted that she has been having ongoing hematuria as well as hematochezia and
presented with significant urinary retention as well as constipation with last bowel movement 10 to 14 days ago. Urine analysis showed 4+ occult blood. Given this a discussion was had with the primary team and GI and input was obtained.
4. Per GI evaluation on exam she was found to have bright red blood per rectum with recommendations leading to a colonoscopy tomorrow after her bowel prep today.
5. Upon placement of Santiago by urology she was found to have significant hematuria along with purulent drainage with base urgent bed side cystoscopy not showing any evidence of bladder tumors or masses but significant inflammation and purulent
drainage. Per urology recommendation she was started on antibiotics for possible UTI and heparin was discontinued given patient is deemed very high risk for ongoing bleeding from the bladder with significant underlying inflammation.
6. Multiple discussions were had with her POA throughout the day with 2 separate granddaughters, Rupinder (over the phone ) as well as Lucina at bedside. After speaking to patient at length I have significant concerns in regards to some memory
deficits and the fact that she lives alone and frequently misses doses of her medication including insulin. I would have significant concerns about compliance with dual antiplatelet therapy if she were to warrant any interventions once workup is
completed from a and GI standpoint. Discussions were had with Lucina at bedside in regards to continuing on discussions with best treatment option and consideration for medications only versus a diagnostic catheterization along with medications
and further discussions in regards to appropriateness of intervention and tolerance of dual antiplatelet therapy. Discussion was had with urology that for now we would continue to hold off on the heparin drip for now as risk outweigh the benefits
and that we would reassess on a daily basis. For now the cath is on hold pending GI/ workup and resolution of hematuria and hematochezia. Case management was also involved given concerns for memory lapses and the fact that patient lives alone
and is not compliant with medications raising overall safety concerns.
More than 90 minutes were spent discussing with multiple subspecialties, hospitalist team, nursing, patient and family.
Brie Dye MD, [facility], [facility]
Impression / Plan
-
Chief Load Dispatcher: None, initial consult seen by Dr. Julius Thomas
Assessment:
NSTEMI--Presenting with bandlike chest discomfort on the evening of 03/08/2024 with peak troponin I of 2.030, now chest pain free and trops downtrending
Hematuria and purulent drainage and inflammation in bladder on bedside cystoscopy on 03/10/24
Hematochezia and BRBPR, GI consult with plan for colonscopy on 03/10/24
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
Hypertension
Hyperlipidemia
Sarcoidosis
Recommendations/plan:
1. Serial ECGs performed, no acute ischemic changes present.
2. Medical management with aspirin, statin, beta-kamaljit and heparin drip.
3. Multiple lengthy discussions were had with the patient and she is a very poor historian with memory deficits and very tangential conversation. Through this she noted that she has been having ongoing hematuria as well as hematochezia and
presented with significant urinary retention as well as constipation with last bowel movement 10 to 14 days ago. Urine analysis showed 4+ occult blood. Given this a discussion was had with the primary team and GI and input was obtained.
4. Per GI evaluation on exam she was found to have bright red blood per rectum with recommendations leading to a colonoscopy tomorrow after her bowel prep today.
5. Upon placement of Santiago by urology she was found to have significant hematuria along with purulent drainage with base urgent bed side cystoscopy not showing any evidence of bladder tumors or masses but significant inflammation and purulent
drainage. Per urology recommendation she was started on antibiotics for possible UTI and heparin was discontinued given patient is deemed very high risk for ongoing bleeding from the bladder with significant underlying inflammation.
6. Multiple discussions were had with her POA throughout the day with 2 separate granddaughters, Rupinder (over the phone ) as well as Lucina at bedside. After speaking to patient at length I have significant concerns in regards to some memory
deficits and the fact that she lives alone and frequently misses doses of her medication including insulin. I would have significant concerns about compliance with dual antiplatelet therapy if she were to warrant any interventions once workup is
completed from a and GI standpoint. Discussions were had with Lucina at bedside in regards to continuing on discussions with best treatment option and consideration for medications only versus a diagnostic catheterization along with medications
and further discussions in regards to appropriateness of intervention and tolerance of dual antiplatelet therapy. Discussion was had with urology that for now we would continue to hold off on the heparin drip for now as risk outweigh the benefits
and that we would reassess on a daily basis. For now the cath is on hold pending GI/ workup and resolution of hematuria and hematochezia. Case management was also involved given concerns for memory lapses and the fact that patient lives alone
and is not compliant with medications raising overall safety concerns.
More than 90 minutes were spent discussing with multiple subspecialties, hospitalist team, nursing, patient and family.
Brie Dye MD, [facility], [facility]
Progress Note - Chief Load Dispatcher
Subjective
Date of Service: March 10, 2024
Complains of multiple bowel movements post bowel regimen overnight with bright red blood per rectum as well as hematuria. She denies any chest pain or shortness of breath
Objective
Labs:
03/10/24 12:44
03/09/24 06:06
Labs
Hgb Cancelled 03/10/24 12:44
Hct Cancelled 03/10/24 12:44
Plt Count Cancelled 03/10/24 12:44
PT Cancelled 03/09/24 06:36
INR Cancelled 03/09/24 06:36
APTT Cancelled 03/10/24 12:44
Sodium 137 mmol/L (135-145) 03/09/24 06:06
Potassium 4.2 mmol/L (3.5-5.1) 03/09/24 06:06
BUN 17 mg/dl (7-17) 03/09/24 06:06
Creatinine 0.6 mg/dL (0.6-1.0) 03/09/24 06:06
Glucose 209 mg/dl (70-99) H 03/09/24 06:06
Troponins
03/08/24 03/08/24 03/09/24
19:18 22:39 06:06
Troponin I < 0.012 0.223 H* D 2.030 H* D
03/09/24 03/09/24
12:44 20:00
Troponin I 1.390 H* D Cancelled
Vital Signs and I&O:
Vital Signs
Temp Pulse Resp BP Pulse Ox
98.1 F 73 20 117/72 95
03/10/24 12:50 03/10/24 13:00 03/10/24 12:50 03/10/24 12:49 03/10/24 12:50
Vital Signs
Temp Pulse Resp BP Pulse Ox
98.1 F 73 20 117/72 95
03/10/24 12:50 03/10/24 13:00 03/10/24 12:50 03/10/24 12:49 03/10/24 12:50
Intake & Output
03/08/24 03/09/24 03/10/24 09/04/24
06:59 06:59 06:59 06:59
Intake Total 600 / 600
Output Total 1100 / 1100
Balance -500 / -500
Physical Exam
Physical Exam
No acute distress, A+O x 2, intermittent memory deficits, very tangential in regards to history
Regular rate, normal S1 and S2, 2 out of 6 systolic ejection murmur, loudest at right upper sternal border
Lungs are clear to auscultation bilaterally otherwise except mildly decreased breath sounds at bases
Abdomen is soft, nontender, nondistended with active bowel sounds
Warm extremities without significant edema
[2024-03-10 13:36] LABS: Glucose - Point of Care 214 mg/dl (70-99)
--- NOTE | 2024-03-10 13:44 | CON.MD ---
Consultation - Medical
-
see dictated note
pt with hx of bladder sling x 2 at least 15 years ago
she is not a good historian
denies any chronic urinary problems- but has had UTI's and says she has had some dysuria recently
she is unsure of blood- has seen in the toilet- thinks coming from rectum
had PET scan in december 2023- no sig gu abnl
admitted with CP and ID
was not urinating- cath urine obtained after hep drip started- 1100 residual- bloody- ua + for blood and wbc's
henderson placed by dc- urine dark bloody- then grossly purulent
irrigated clear
bedside cysto performed- somewhat limited- but no gross tumor or mass- 3 henderson replaced and started on cbi
plan
discussed with med team and cardiology
heparin being held
on rocephin
cbi
for colonoscopy tomorrow
cardiology then to discuss options- including med management of coronary dz
--- NOTE | 2024-03-10 13:48 | W.IMMPOSTOP ---
Surgical Immed Post Op Note
-
Primary Surgeon:
chad
Assisting Surgeon:
Pre-op Diagnosis:
hematuria
Post-op Diagnosis:
hematuria
Procedure Performed:
bedside cysto
Anesthesia Type:
local
Specimen / Cultures:
none
Estimated Blood Loss:
none
Complications:
none
Operative Findings:
no gross tumor or mass
diffuse cystitis
3 way henderson placed and cbi started
[2024-03-10] MEDS: STERILE WATER FOR INJECTION 10 ML IV (14:59)
[2024-03-10] MEDS: ROCEPHIN 1000 MG IV (14:59)
[2024-03-10] MEDS: FLUSH (NSS) 2 FLUSH IV (15:02)
--- NOTE | 2024-03-10 15:14 | CM ---
Chart reviewed. Patient is independent of ADLS, lives alone in a [address], [address] [facility], ambulates with a SPC and also has a RW at home. I spoke with the patient and her granddaughter, Lucina, patient has been forgetful especially with taking medications.
Plan is for the patient to go to the patient's granddaughters home when she is medically stable for discharge. Patient is not current with VN. Patient does have [facility]. Patient is interested in [facility]. Referral placed to [facility]. Plan is for
the patient to go to the patient's granddaughters house in [place] with VN when medically stable for discharge. CM to follow
[2024-03-10 16:04] VITALS: BP 115/70
[2024-03-10] MEDS: NULYTELY SOLUTION 4 LITERS PO (17:45)
[2024-03-10 17:59] LABS: Glucose - Point of Care 199 mg/dl (70-99)
[2024-03-10] MEDS: NOVOLOG FLEXPEN-MODERATE RESISTANCE 1 UNITS SC (18:01)
[2024-03-10] MEDS: NOVOLOG FLEXPEN 8 UNITS SC (18:03)
[2024-03-10] MEDS: LIPITOR 20 MG PO (18:03)
[2024-03-10 19:06] VITALS: BP 150/80
[2024-03-10 22:31] VITALS: BP 119/52
[2024-03-10 22:35] LABS: Glucose - Point of Care 48 mg/dl (70-99)
[2024-03-10] MEDS: LANTUS SC (22:56)
[2024-03-10 23:01] LABS: Glucose - Point of Care 108 mg/dl (70-99)
--- NOTE | 2024-03-10 23:23 | PTCARENOTE ---
BS 47 Pt asymptomatic. 4oz juice given per protocol. Recheck in 15 min BS 108. RETAIL SALES ASSOCIATE made aware. Lantus on hold. Pt NPO after midnight
[2024-03-11] VITALS (12 sets, daily range): BP systolic 96–126; BP diastolic 53–100; BMI 24.2
[2024-03-11 01:05] LABS: Glucose - Point of Care 99 mg/dl (70-99)
[2024-03-11 03:26] LABS: Glucose - Point of Care 125 mg/dl (70-99)
[2024-03-11 05:31] LABS: Hematocrit 33.6 % (37.0-47.0); Mean Corp Hgb Conc. 35.7 g/dL (33.0-37.0); Mean Platelet Volume 10.6 fL (7.4-10.4); Platelet Count 184 10^3/uL (130-400); Red Cell Dist. Width 13.3 % (11.5-14.5); White Blood Cell Count 8.4 10^3/uL (4.8-10.8)
[2024-03-11 07:46] LABS: Glucose - Point of Care 185 mg/dl (70-99)
[2024-03-11] MEDS: DELTASONE PO (08:00)
[2024-03-11] MEDS: LOPRESSOR PO (08:00)
[2024-03-11] MEDS: ASPIR LOW (ENTERIC COATED) PO (08:00)
[2024-03-11] MEDS: MIRALAX PO (08:15)
[2024-03-11] MEDS: DICLOFENAC 1% TOPICAL GEL 2 GRAM TOPICAL ×3 (08:15→22:00)
[2024-03-11] MEDS: NOVOLOG FLEXPEN SC (08:15)
[2024-03-11] MEDS: DESENEX/MITRAZOL/ZEASORB 1 APPLIC TOPICAL ×2 (08:15→20:06)
[2024-03-11] MEDS: NOVOLOG FLEXPEN-MODERATE RESISTANCE SC ×2 (08:22→12:53)
--- NOTE | 2024-03-11 08:48 | PTCARENOTE ---
Assumed care of pt from prev nsg shift; Pt AAOX2-3, appears mildly forgetful & a little confused to time. Reoriented easily. Pt w/no c/o CP or SOB this AM. Pt's VS stable w/HR 60's BP this AM 126/65. Pt is SR on telemetry monitoring. Pt w/3 way
henderson in place w/CBI infusing slowly w/urine output completely clear. Pt w/bed alarm in place & call yeboah within reach. Plan of care ongoing.
--- NOTE | 2024-03-11 11:10 | W.PN.HOSP.TC ---
Today's Communication/Plan
-
see bold
Assessment / Plan
Assessment / Plan
Gen: NAD, Awake and alert, NCAT
Eyes: EOMI, PERRLA, no scleral icterus.
Neck: supple.
CV: continues to remain RRR, +S1/S2, 1/6 systolic murmur
Resp: continues to remain CTAB, no rales, wheezes, or rhonchi.
Abd: +BS, soft, NT, ND
Skin: No rashes.
Neuro: CN 2-12 intact, non-focal.
Psych: Normal mood and affect.
Echo: Mild concentric left ventricular hypertrophy. Left ventricle is small in size.
Hyperdynamic left ventricular systolic function. Left ventricular ejection
fraction is 74% by Reyes's method. Diastolic function indeterminate.
Normal right ventricular size and function.
Mitral annular calcification. Thickened mitral valve leaflets. Mitral valve
opens normally. Mild mitral regurgitation.
Trileaflet aortic valve. Thickened aortic valve with restricted leaflet motion.
Moderate, Moderate to severe aortic stenosis. Peak/mean gradients across the
aortic valve are 32/18 mmHg. Using an LVOT diameter of 2.1 cm, the KEERTHI =
.99cm2. No aortic regurgitation is seen.
Tricuspid valve opens normally. Mild tricuspid regurgitation. Estimated
pulmonary artery pressure of 22 mmHg, assuming a right atrial pressure of 3
mmHg.
Acute NSTEMI:
-trop peaked at 2.030, now trending down
-ASA given in ER
-LDL 68
-was on heparin gtt which was stopped due to hematuria
-Echo above, notable for EF 74%, mild MR, mod-sev , mild TR
-no plans for cardiac cath at this time due to hematochezia and hematuria as well as patient's memory issues which may contribute to noncompliance with postcardiac catheterization medications
Acute hematuria:
-03/10/24 bedside cystoscopy: No gross tumor or mass, diffuse cystitis
-3 way henderson placed and CBI started, now off CBI, henderson with clear urine
-cont Rocephin, follow UCx
Hematochezia:
-colonoscopy today
-Hb stable
Other problems:
DM2: SSI/accuchecks. Lantus/premeal insulin currently being held as pt NPO as well as episode of hypoglycemia.
Sarcoidosis: Cont Prednisone
DNR/SCDs
Anticipated Discharge: 24 - 48 hours
Subjective/Interval History
-
Date of Service: March 11, 2024
Denies CP/SOB.
Objective Data
-
Labs:
Laboratory Results
03/11/24
05:19
WBC 8.4
Hgb 12.0
Hct 33.6 L
Plt Count 184
Vital Signs:
Vital Signs
Temp Pulse Resp BP Pulse Ox
97.8 F 63 20 126/65 98
03/11/24 07:40 03/11/24 07:42 03/11/24 07:40 03/11/24 07:42 03/11/24 07:42
I&O
03/10/24 03/11/24 03/12/24
06:59 06:59 06:59
Intake Total 600 / 600 1020 / 1020
Output Total 1100 / 1100 2950 / 2950
Balance -500 / -500 -1930 / -193
--- NOTE | 2024-03-11 11:28 | W.PN.CARDCBS ---
Today's Communication / Plan
-
Recommendations/plan:
1. Serial ECGs performed, no acute ischemic changes present. Continues to remain CP free off heparin drip which was stopped 03/10 due to hematuria.
2. Medical management with aspirin, statin, beta-kamaljit for now. Holding off on second antiplatelet given hematuria and hematochezia.
3. Upon placement of Santiago by urology she was found to have significant hematuria along with purulent drainage with base urgent bed side cystoscopy not showing any evidence of bladder tumors or masses but significant inflammation and purulent
drainage. Per urology recommendation she was started on antibiotics for possible UTI and heparin was discontinued given patient is deemed very high risk for ongoing bleeding from the bladder with significant underlying inflammation. UCx Pending.
Awaiting input from urology in regards to safety of full AC/DAPT and timing of it.
4. s/p csope with GI 03/11 with modium sized, grade II internal hemorrhoids. No contraindication for full AC and DAPT per GI pending input from colorectal surgery regarding management of internal hemorrhoids.
5. Multi-disciplinary discussion with GI, and hospitalist in regards to determining safety of full AC and DAPT to decide on timing of cath versus medical therapy only. Awaiting input from colorectal surgery and urology.
6. Multiple discussions have also been had with her POAs with 2 separate granddaughters, Rupinder (over the phone) as well as Lucina at bedside on 03/10. After speaking to patient at length I have significant concerns in regards to some memory deficits
and the fact that she lives alone and frequently misses doses of her medications including insulin. I would have significant concerns about compliance with dual antiplatelet therapy if she were to warrant any interventions once workup is completed
from a and GI/CRS standpoint. Discussions were had with Lucina at bedside in regards to continuing on discussions with best treatment option and consideration for medications only versus a diagnostic catheterization to define coronary anatomy.
Case management was also involved given concerns for memory lapses and the fact that patient lives alone currently and is not compliant with medications raising overall safety concerns. Granddaughters considering having patient move in with one of
them.
7. Echo showing at least moderate aortic stenosis which will need monitoring in future.
Brie Dye MD, [facility], [facility]
Impression / Plan
-
Ross Furnace Operator: None, initial consult seen by Dr. Julius Thomas
Assessment:
NSTEMI--Presenting with bandlike chest discomfort on the evening of 03/08/2024 with peak troponin I of 2.030, now chest pain free and trops downtrending
Hematuria and purulent drainage and inflammation in bladder on bedside cystoscopy on 03/10/24
Hematochezia and BRBPR, GI consult with plan for colonscopy on 03/10/24
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
Hypertension
Hyperlipidemia
Sarcoidosis
Echocardiogram 03/10/2024: LVEF 74%, Mild LVH, Mild MR, Moderate, Moderate to severe aortic stenosis. Peak/mean AoV gradients 32/18 mmHg. Using an LVOT diameter of 2.1 cm, the KEERTHI = .99cm2. No AR. Mild TR.
C-scop 03/11/24: Medium sized hemorrhoids were found on perianal exam. The terminal ileum appeared normal. A moderate amount of liquid semi-liquid stool was found in the transverse colon, in the ascending colon and in the cecum, making visualization
difficult. Lavage of the area was performed using copious amounts of sterile water, resulting in clearance with fair visualization. A few small-mouthed diverticula were found in the transverse colon. Bleeding (oozing on contact) internal hemorrhoids
were found during retroflexion. The hemorrhoids were medium-sized and Grade II (internal hemorrhoids that prolapse but reduce spontaneously).
Recommendations/plan:
1. Serial ECGs performed, no acute ischemic changes present. Continues to remain CP free off heparin drip which was stopped 03/10 due to hematuria.
2. Medical management with aspirin, statin, beta-kamaljit for now. Holding off on second antiplatelet given hematuria and hematochezia.
3. Upon placement of Santiago by urology she was found to have significant hematuria along with purulent drainage with base urgent bed side cystoscopy not showing any evidence of bladder tumors or masses but significant inflammation and purulent
drainage. Per urology recommendation she was started on antibiotics for possible UTI and heparin was discontinued given patient is deemed very high risk for ongoing bleeding from the bladder with significant underlying inflammation. UCx Pending.
Awaiting input from urology in regards to safety of full AC/DAPT and timing of it.
4. s/p csope with GI 03/11 with modium sized, grade II internal hemorrhoids. No contraindication for full AC and DAPT per GI pending input from colorectal surgery regarding management of internal hemorrhoids.
5. Multi-disciplinary discussion with GI, and hospitalist in regards to determining safety of full AC and DAPT to decide on timing of cath versus medical therapy only. Awaiting input from colorectal surgery and urology.
6. Multiple discussions have also been had with her POAs with 2 separate granddaughters, Rupinder (over the phone) as well as Lucina at bedside on 03/10. After speaking to patient at length I have significant concerns in regards to some memory deficits
and the fact that she lives alone and frequently misses doses of her medications including insulin. I would have significant concerns about compliance with dual antiplatelet therapy if she were to warrant any interventions once workup is completed
from a and GI/CRS standpoint. Discussions were had with Lucina at bedside in regards to continuing on discussions with best treatment option and consideration for medications only versus a diagnostic catheterization to define coronary anatomy.
Case management was also involved given concerns for memory lapses and the fact that patient lives alone currently and is not compliant with medications raising overall safety concerns. Granddaughters considering having patient move in with one of
them.
7. Echo showing at least moderate aortic stenosis which will need monitoring in future.
Brie Dye MD, [facility], [facility]
Progress Note - Ross Furnace Operator
Subjective
Date of Service: March 11, 2024
No CP or SOB.
Objective
Labs:
03/11/24 05:19
03/09/24 06:06
Labs
Hgb 12.0 g/dL (12.0-16.0) 03/11/24 05:19
Hct 33.6 % (37.0-47.0) L 03/11/24 05:19
Plt Count 184 10^3/uL (130-400) 03/11/24 05:19
PT Cancelled 03/09/24 06:36
INR Cancelled 03/09/24 06:36
APTT Cancelled 03/10/24 12:44
Sodium 137 mmol/L (135-145) 03/09/24 06:06
Potassium 4.2 mmol/L (3.5-5.1) 03/09/24 06:06
BUN 17 mg/dl (7-17) 03/09/24 06:06
Creatinine 0.6 mg/dL (0.6-1.0) 03/09/24 06:06
Glucose 209 mg/dl (70-99) H 03/09/24 06:06
Troponins
03/08/24 03/08/24 03/09/24
19:18 22:39 06:06
Troponin I < 0.012 0.223 H* D 2.030 H* D
03/09/24 03/09/24
12:44 20:00
Troponin I 1.390 H* D Cancelled
Vital Signs and I&O:
Vital Signs
Temp Pulse Resp BP Pulse Ox
97.8 F 63 20 126/65 98
03/11/24 07:40 03/11/24 07:42 03/11/24 07:40 03/11/24 07:42 03/11/24 07:42
Vital Signs
Temp Pulse Resp BP Pulse Ox
97.8 F 63 20 126/65 98
03/11/24 07:40 03/11/24 07:42 03/11/24 07:40 03/11/24 07:42 03/11/24 07:42
Intake & Output
03/09/24 03/10/24 03/11/24 03/12/24
06:59 06:59 06:59 06:59
Intake Total 600 / 600 1020 / 1020
Output Total 1100 / 1100 2950 / 2950
Balance -500 / -500 -193 / -1929
Physical Exam
Physical Exam
No acute distress, A+O x 2, intermittent memory deficits, very tangential in regards to history
Regular rate, normal S1 and S2, 2 out of 6 systolic ejection murmur, loudest at right upper sternal border
Lungs are clear to auscultation bilaterally otherwise except mildly decreased breath sounds at bases
Abdomen is soft, nontender, nondistended with active bowel sounds
Warm extremities without significant edema
[2024-03-11 11:57] LABS: Glucose - Point of Care 200 mg/dl (70-99)
--- NOTE | 2024-03-11 12:37 | PTCARENOTE ---
Pt's CBI stopped as ordered this AM at 0830. Pt w/clear yellow urine. Pt taken to GI lab for colonoscopy via transport.
[2024-03-11] MEDS: DICLOFENAC 1% TOPICAL GEL TOPICAL (13:00)
--- NOTE | 2024-03-11 13:29 | CM ---
Chart reviewed. Patient is independent of ADLS, lives alone in a [address], [address] [facility], ambulates with a RW and SPC. Plan is for the patient to return to her Granddaughters home with GVVN. ROE to follow
--- NOTE | 2024-03-11 13:53 | W.PN.URO.CBU ---
Today's Communication / Plan
-
await urine cx
keep Santiago
Assessment / Plan
-
hematuria -- resolved
urinary retention -- managed by Santiago
Diagnosis
-
Date of Service: March 11, 2024
-
Patient Diagnosis: Gross hematuria
Chronic, subtotal urinary retention
UTI
s/p bedside cystoscopy
Post Op Day: 1
Subjective
-
comfortable immediately after colonoscopy
Objective
-
Vital Signs
Temp Pulse Resp BP Pulse Ox
98.9 F 67 20 114/80 100
03/11/24 13:47 03/11/24 13:03 03/11/24 13:47 03/11/24 13:03 03/11/24 13:47
Intake and Output
03/10/24 03/11/24 03/12/24
06:59 06:59 06:59
Intake Total 600 / 600 1020 / 1020
Output Total 1100 / 1100 2950 / 2950 500 / 500
Balance -500 / -500 -1930 / -1930 -500 / -500
Intake:
Oral fluids 600 / 600 1020 / 1020
Output:
Urine, Santiago 400 / 400
Straight cath output 1100 / 1100
True Urine Output from CBI 2550 / 2550 500 / 500
Other:
Number of approximated MODERATE 1
amounts of urine
Laboratory Results
03/11/24 05:19
03/09/24 06:06
Physical Exam
-
General - supine in bed, no acute distress
Abdomen - soft, non-tender, positive bowel sounds, no distention
Genitalia - Santiago with yellow outflow
[2024-03-11] MEDS: PROTONIX 40 MG PO (14:36)
[2024-03-11] MEDS: ROCEPHIN 1000 MG IV (14:36)
[2024-03-11] MEDS: ASPIR LOW (ENTERIC COATED) 81 MG PO (14:36)
[2024-03-11] MEDS: STERILE WATER FOR INJECTION 10 ML IV (14:36)
[2024-03-11] MEDS: DELTASONE 20 MG PO (14:36)
[2024-03-11] MEDS: FLUSH (NSS) 2 FLUSH IV (14:37)
[2024-03-11 14:43] LABS: Glucose - Point of Care 186 mg/dl (70-99)
[2024-03-11] MEDS: NOVOLOG FLEXPEN 5 UNITS SC (14:43)
[2024-03-11] MEDS: NOVOLOG FLEXPEN-MODERATE RESISTANCE 1 UNITS SC (14:43)
--- NOTE | 2024-03-11 15:55 | CON.CRS ---
Consultation
-
Reason for Consultation: Bleeding hemorrhoids
Medical History
-
Chief Complaint: Rectal bleeding
History of Present Illness:
83-year-old female in whom I was consulted for rectal bleeding, level likely hemorrhoidal. She admits coming back that she intermittently has had rectal bleeding with bowel movements for a long time. This occurs 2-3 times per week. She also deals
with chronic constipation and actually moves her bowels every 2 to 3 weeks with the benefit of laxatives. Otherwise she does not take laxatives. She came to the hospital with chest pain and elevated troponins and cardiology is planning to perform
a cardiac catheterization with likely need for anticoagulation. Colonoscopy was performed today by Dr. Barry. Results reviewed. Actively bleeding internal hemorrhoids noted. On discussion with the patient she is not aware that she has hemorrhoids.
She denies prolapse. Denies anal pain. Denies having prior procedures for hemorrhoids. She denies fecal incontinence.
Past Medical History
Past Medical History: IDDM and Other (Sarcoidosis; rheumatoid arthritis; lung nodule)
Past Surgical History: Orthopedic (Hip replacement)
Social History
Tobacco: Non-Smoker
Alcohol: None
Living: Alone
Family History
Family History: Other (Daughter with colon cancer; daughter with lung cancer)
Allergies / Home Medications
Allergy/AdvReac Type Severity Reaction Status Date / Time
adhesive Allergy blisters Verified 03/08/24 19:09
adhesive tape Allergy redness,sor Verified 03/08/24 19:09
e
�Medication �Instructions �Recorded �Confirmed �Type
acetaminophen 500 mg tablet (Pain 1,000 mg PO TIDPRN PRN mild pain 10/11/22 03/08/24 History
Reliever Extra Strength
(acetaminophen))
calcium carbonate (Tums) 200 mg PO TID PRN heartburn 10/11/22 03/08/24 History
insulin aspart U-100 100 unit/mL 5 unit SC BID Diabetes 03/08/24 03/08/24 History
(3 mL) subcutaneous pen (Novolog
FlexPen U-100 Insulin aspart)
insulin aspart U-100 100 unit/mL 8 unit SC QPM Diabetes 03/08/24 03/08/24 History
(3 mL) subcutaneous pen (Novolog
FlexPen U-100 Insulin aspart)
insulin glargine 100 unit/mL (3 40 unit SC HS Diabetes 03/08/24 03/08/24 History
mL) subcutaneous pen (Lantus
Solostar U-100 Insulin)
prednisone 20 mg tablet 20 mg PO DAILY INFLAMMATION 03/08/24 03/08/24 History
Review of Systems
-
A 10 point review of systems was completed, and was negative except as per HPI.
Physical Exam
Vital Signs
Temp 98.9 F 03/11/24 13:47
Pulse 67 03/11/24 13:03
Resp Rate 20 03/11/24 13:47
Blood pressure 114/80 03/11/24 13:03
SaO2 100 03/11/24 13:47
03/10/24 03/11/24 03/12/24
06:59 06:59 06:59
Actual Weight 69.9 kg
Body Mass Index (BMI) 24.2
Lab Results / Allergies
03/11/24 05:19
03/09/24 06:06
WBC 8.4 10^3/uL (4.8-10.8) 03/11/24 05:19
Hgb 12.0 g/dL (12.0-16.0) 03/11/24 05:19
Hct 33.6 % (37.0-47.0) L 03/11/24 05:19
Plt Count 184 10^3/uL (130-400) 03/11/24 05:19
Abs Immat Gran (auto) 0.1 10^3/uL (0-0.05) H 03/08/24 19:18
Neutrophils % 72.3 % (42.2-75.2) 03/08/24 19:18
Allergy/AdvReac Type Severity Reaction Status Date / Time
adhesive Allergy blisters Verified 03/08/24 19:09
adhesive tape Allergy redness,sor Verified 03/08/24 19:09
e
Physical Exam
General: Well Developed
HEENT: Normocephalic
Respiratory: Clear
Cardiac: Regular Rhythm
GI: Soft, Non Tender and Non Distended
Rectal: Other (Minimal if any external hemorrhoids)
Neuro: AO x 3
Psych: Calm and Other (Mentally intact)
Data Reviewed
-
Labs: Labs Reviewed by me
Assessment / Plan
-
83-year-old female with intermittently actively bleeding sizable internal hemorrhoids documented on colonoscopy by GI. She has elevated troponins and was admitted with chest pain leading to cardiology wanting to perform a catheterization with the
potential for anticoagulation. They wish for the bleeding to be addressed before hand. I suggested the patient the option of PPH procedure (procedure for prolapse and hemorrhoids). Risk and benefits discussed. Risks described included but not
limited to bleeding, infection, changes about control/fecal incontinence, anorectal stricture formation, rectovaginal fistula formation, recurrence of the hemorrhoids, urinary tension, and anesthetic risk. I emphasized that she is likely at higher
cardiovascular risk given her troponin issues. She is willing to proceed as long as cardiology is okay with it. I have added her on tentatively for the OR tomorrow afternoon late in the day. I also updated her granddaughter Ria via phone
conversation.
[2024-03-11 18:49] LABS: Glucose - Point of Care 328 mg/dl (70-99)
[2024-03-11] MEDS: LIPITOR 20 MG PO (18:49)
[2024-03-11] MEDS: NOVOLOG FLEXPEN-MODERATE RESISTANCE 7 UNITS SC (18:49)
[2024-03-11] MEDS: NOVOLOG FLEXPEN 8 UNITS SC (18:49)
[2024-03-11] MEDS: LOPRESSOR 12.5 MG PO (20:06)
[2024-03-11 22:54] LABS: Glucose - Point of Care 124 mg/dl (70-99)
[2024-03-11] MEDS: LANTUS SC (23:07)
[2024-03-12] VITALS (22 sets, daily range): BP systolic 99–169; BP diastolic 54–86; BMI 23.9
[2024-03-12 00:02] LABS: Glucose - Point of Care 94 mg/dl (70-99)
[2024-03-12] MEDS: LANTUS 0.1 UNITS SC (00:14)
--- NOTE | 2024-03-12 04:14 | PTCARENOTE ---
Tele remains SB/NSR, HR in the 50-60's at rest. Pt aware to maintain NPO status for procedure today. Pt denies any pain or discomfort. 3 way Santiago remains in place and draining yellow urine. POC ongoing, and call yeboah within reach.
[2024-03-12 05:56] LABS: Glucose - Point of Care 126 mg/dl (70-99)
[2024-03-12] MEDS: NOVOLOG FLEXPEN-MODERATE RESISTANCE SC (05:59)
--- NOTE | 2024-03-12 07:49 | W.PN.HOSP.TC ---
Addendum entered and electronically signed by Matt Martinez MD 03/12/24 12:53:
Diverticulosis is a valid diagnosis
Original Note:
Today's Communication/Plan
-
see bold
Assessment / Plan
Assessment / Plan
Gen: remains NAD, Awake and alert, NCAT
Eyes: EOMI, PERRLA, no scleral icterus.
Neck: supple.
CV: colleen, reg rhythm, +S1/S2, 1/6 systolic murmur
Resp: CTAB, no rales, wheezes, or rhonchi.
Abd: +BS, soft, NT, ND
Skin: No rashes.
Neuro: remains CN 2-12 intact, non-focal.
Psych: Normal mood and affect.
Echo: Mild concentric left ventricular hypertrophy. Left ventricle is small in size.
Hyperdynamic left ventricular systolic function. Left ventricular ejection
fraction is 74% by Reyes's method. Diastolic function indeterminate.
Normal right ventricular size and function.
Mitral annular calcification. Thickened mitral valve leaflets. Mitral valve
opens normally. Mild mitral regurgitation.
Trileaflet aortic valve. Thickened aortic valve with restricted leaflet motion.
Moderate, Moderate to severe aortic stenosis. Peak/mean gradients across the
aortic valve are 32/18 mmHg. Using an LVOT diameter of 2.1 cm, the KEERTHI =
.99cm2. No aortic regurgitation is seen.
Tricuspid valve opens normally. Mild tricuspid regurgitation. Estimated
pulmonary artery pressure of 22 mmHg, assuming a right atrial pressure of 3
mmHg.
Acute NSTEMI:
-trop peaked at 2.030, now trending down
-ASA given in ER
-LDL 68
-was on heparin gtt which was stopped due to hematuria
-Echo above, notable for EF 74%, mild MR, mod-sev , mild TR
-timing of cardiac cath (if it's being done at all) to be determined
Acute hematuria:
-03/10/24 bedside cystoscopy: No gross tumor or mass, diffuse cystitis
-3 way henderson placed and CBI started, now off CBI, henderson with clear urine
-cont Rocephin, follow UCx
Hematochezia:
-Colonoscopy on 03/12/2024 with bleeding internal hemorrhoids
-CRS to possibly do procedure for prolapse and hemorrhoids today
-Hb stable
Other problems:
DM2: SSI/accuchecks. Lantus/premeal insulin currently being held as pt NPO as well as episode of hypoglycemia.
Sarcoidosis: Cont Prednisone
DNR/SCDs
Total time spent on today's encounter was 50 minutes which included time spent in counseling the patient/family regarding diagnosis and treatment plan as listed above, goals of care, and symptom management. Case was discussed with nursing staff,
specialists, and care coordinators/case management. All labs and imaging personally reviewed by me. Remainder the time spent in detailed review of previous records, lab data, imaging, and other medical provider documentation.
Anticipated Discharge: > 48 hours
Subjective/Interval History
-
Date of Service: March 12, 2024
Denies CP/SOB.
Objective Data
-
Vital Signs:
Vital Signs
Temp Pulse Resp BP Pulse Ox
97.5 F 54 20 121/71 100
03/12/24 07:40 03/12/24 05:01 03/12/24 07:40 03/12/24 03:07 03/12/24 07:40
I&O
03/11/24 03/12/24 03/13/24
06:59 06:59 06:59
Intake Total 1020 / 1020 1490 / 1490
Output Total 2950 / 2950 3250 / 3250
Balance -1930 / -1930 -1760 / -1760
[2024-03-12] MEDS: ASPIR LOW (ENTERIC COATED) 81 MG PO (07:58)
[2024-03-12] MEDS: PROTONIX 40 MG PO (07:58)
[2024-03-12] MEDS: LOPRESSOR 12.5 MG PO ×2 (07:58→20:27)
[2024-03-12] MEDS: DELTASONE 20 MG PO (07:58)
[2024-03-12] MEDS: FLUSH (NSS) 1 FLUSH IV (07:59)
[2024-03-12 08:18] LABS: Glucose - Point of Care 144 mg/dl (70-99)
[2024-03-12] MEDS: NOVOLOG FLEXPEN SC ×2 (09:21→16:03)
[2024-03-12] MEDS: DESENEX/MITRAZOL/ZEASORB 1 APPLIC TOPICAL ×2 (09:26→20:28)
[2024-03-12] MEDS: DICLOFENAC 1% TOPICAL GEL 2 GRAM TOPICAL ×3 (09:26→22:49)
--- NOTE | 2024-03-12 10:02 | W.PN.URO.CBU ---
Today's Communication / Plan
-
cbi prn majir cl;ots after hand irrigation prn major clots
Assessment / Plan
-
hematuria -- resolved
urinary retention -- managed by Henderson if blleds post cath may need 3 way henderson an dcbi but for now contunue present care
Diagnosis
-
Date of Service: March 12, 2024
-
Patient Diagnosis:
Post Op Day:
Patient Diagnosis: Gross hematuria
Chronic, subtotal urinary retention
UTI
s/p bedside cystoscopy
Post Op Day: 1
Subjective
-
urine clear needs henderson getting cath
Objective
-
Vital Signs
Temp Pulse Resp BP Pulse Ox
97.5 F 51 20 111/66 100
03/12/24 07:40 03/12/24 09:00 03/12/24 07:40 03/12/24 07:58 03/12/24 07:40
Intake and Output
03/11/24 03/12/24 03/13/24
06:59 06:59 06:59
Intake Total 1020 / 1020 1490 / 1490
Output Total 2950 / 2950 3250 / 3250
Balance -1930 / -1930 -1760 / -1760
Intake:
Oral fluids 1020 / 1020 1440 / 1440
IV fluids (Total) 50 / 50
ns 50 / 50
Output:
Urine, Henderson 400 / 400 2750 / 2750
True Urine Output from CBI 2550 / 2550 500 / 500
Laboratory Results
03/11/24 05:19
Review of Systems
-
: Difficulty Voiding
Physical Exam
-
General - well developed, well nourished, no acute distress
Chest - clear bilaterally
Abdomen - soft, non-tender, positive bowel sounds, no CVAT, no incisional pain or distention
Genitalia - normal
Rectal - normal
Skin - warm & dry with no rash
Neuro - AOx3, no motor deficits
Extremities - no clubbing, no cyanosis, no edema
Incision - clean, dry
Dressing - clean, dry, intact
Care Review
Data Reviewed
Discussed with: Cardiology and Nursing
--- NOTE | 2024-03-12 10:09 | W.PN.CRS1 ---
Today's Communication / Plan
-
hemorrhoid surgery on hold
hemorrhoid cream prn
Assessment/Plan
-
83-year-old female with intermittently actively bleeding sizable internal hemorrhoids documented on colonoscopy by GI
Hgb 12.0 from 13.2
-Dr. Hoyt spoke with cardiology regarding PPH (hemorrhoid surgery). Given her presiding cardiac issues, will hold on PPH for now. Likely stent today by cards.
-Monitor for bloody stools
-Trend hgb (stable)
-Will order hemorrhoid cream
-Given likely long-term anticoagulation, will be a good candidate for outpatient sclerotherapy with Dr. Jimenez. She can follow up after her hospitalization.
Subjective Data
Subjective Data
Date of Service: March 12, 2024
Patient states she had no bleeding overnight or today. She has not had any bowel movements since yesterday. She has no abdominal pain.
Objective Data
-
Vital Signs
Temp Pulse Resp BP Pulse Ox
97.5 F 51 20 111/66 100
03/12/24 07:40 03/12/24 09:00 03/12/24 07:40 03/12/24 07:58 03/12/24 07:40
Intake & Output
03/11/24 03/12/24 03/13/24
06:59 06:59 06:59
Intake Total 1020 / 1020 1490 / 1490
Output Total 2950 / 2950 3250 / 3250
Balance -1930 / -1930 -1760 / -1760
Intake:
Oral fluids 1020 / 1020 1440 / 1440
IV fluids (Total) 50 / 50
ns 50 / 50
Output:
Urine, Santiago 400 / 400 2750 / 2750
True Urine Output from CBI 2550 / 2550 500 / 500
Lab Results
09/04/24 05:19
Physical Exam
-
General: No Acute Distress and AOx3
Abdomen: Soft, Non Distended and Non Tender
Skin: Warm and Dry
[2024-03-12 10:26] LABS: Blood Urea Nitrogen 10 mg/dl (7-17); Calcium 9.2 mg/dl (8.4-10.2); Carbon Dioxide 28 mmol/L (22-30); Chloride 102 mmol/L (98-107); Estimated Creatinine Clearance 69 ml/min; Glucose 193 mg/dl (70-99); Potassium 4.2 mmol/L (3.5-5.1); Sodium 141 mmol/L (135-145); eGFR > 60.00
--- NOTE | 2024-03-12 10:30 | PTCARENOTE ---
Received patient at change of shift. Patient was awake and alert in bed, oriented. BP 111/66, SB 50s, 100% on room air. Patient NPO for procedure today. Dr. Jimenez (GI) was bedside and said no longer doing PPH, but will just observe for now. Patient
c/o not having had solid food since Saturday. Discussed importance of NPO, patient verbalized understanding. Call yeboah within reach.
--- NOTE | 2024-03-12 11:29 | PN.CDI ---
CDI
- -
CDI:
Physician Documentation Request
Admit Date: 03/09/24 00:28
Dear Doctor Juan,
Patient admitted for NSTEMI.
03/11 Colonoscopy Report: 'A few small-mouthed diverticula were found in the transverse colon...Diverticulosis in the transverse colon.'
The diagnosis of diverticulosis was included in the signed colonoscopy report.
Please indicate in your progress notes if you are in agreement that the above diagnosis is valid for this patient:
____ - Diverticulosis is a valid diagnosis (Please include it in your progress notes)
____ - Diverticulosis is not a valid diagnosis for this patient
____ - Diverticulosis is not yet confirmed but remains a suspected condition
____ - Other
____ - Unable to determine
Use of terms such as suspected, likely, concern for, or probable are acceptable for a diagnosis that is being evaluated, monitored or treated as if it exists and can be coded in the inpatient setting, when documented at the time of discharge.
Thank you,
Josiane Worley RN, BSN
CDI Specialist
Available via [place] text
Please use your independent medical judgment in providing your response.
--- NOTE | 2024-03-12 11:30 | CM ---
Chart reviewed. Patient is independent of ADLS, lives alone in a [address] [facility], ambulates with a SPC, HILDA. Plan is for the patient to go to her granddaughter, Lucina's house, with GVVN. ROE to follow
[2024-03-12 11:56] LABS: ACT-LR - POC 205 Seconds (116-155)
[2024-03-12 12:07] LABS: ACT-LR - POC 216 Seconds (116-155)
[2024-03-12 12:19] LABS: ACT-LR - POC 306 Seconds (116-155)
[2024-03-12 12:43] LABS: ACT-LR - POC 303 Seconds (116-155)
[2024-03-12 12:58] LABS: ACT-LR - POC 242 Seconds (116-155)
[2024-03-12] MEDS: NSS 1000 IV (13:52)
[2024-03-12 13:54] LABS: ACT-LR - POC 181 Seconds (116-155)
[2024-03-12] MEDS: DICLOFENAC 1% TOPICAL GEL TOPICAL ×2 (14:00→14:04)
[2024-03-12] MEDS: STERILE WATER FOR INJECTION 10 ML IV (14:04)
[2024-03-12] MEDS: ROCEPHIN 1000 MG IV (14:05)
--- NOTE | 2024-03-12 14:15 | ITS.CL.CATH ---
Addendum entered and electronically signed by Elie Lopez MD 03/13/24 13:58:
Attending addendum: I inadvertently dictated Xience stent rather than Onxy stent. The mid LAD was stented with a 2.5 x 15 mm Escobar stent. Corrected below
PROCEDURES:
1. Coronary angiography
2. Successful stenting of the proximal to mid LAD with a 2.5 x 38 mm Northwood stent that was implanted at nominal pressures and postdilated to 24 david with a 2.75 mm noncompliant balloon
3. Successful stenting of the mid LAD with a 2.5 x 15 mm Escobar stent that was postdilated to nominal pressures with a 2.75 mm noncompliant balloon
Original Note:
Spool Maker - Catheterization
Cardiac Catheterization
Procedure Report:
LEFT HEART CATH AND CORONARY INTERVENTION
Date of Procedure: March 12, 2024
Referring: Dr. Julius Thomas
PROCEDURES:
1. Coronary angiography
2. Successful stenting of the proximal to mid LAD with a 2.5 x 38 mm Escobar stent that was implanted at nominal pressures and postdilated to 24 david with a 2.75 mm noncompliant balloon
3. Successful stenting of the mid LAD with a 2.5 x 15 mm Xience stent that was postdilated to nominal pressures with a 2.75 mm noncompliant balloon
INDICATION: This is an 83-year-old female who presented to [facility] with a bandlike chest discomfort beginning the evening before admission. She ruled in for non-ST segment elevation myocardial infarction with peak troponin of 2.03
ng/mL. A Santiago catheter was placed with with significant hematuria and purulent drainage with bedside cystoscopy on 03/10/2024 notable for significant bladder inflammation. She developed rectal bleeding and was seen by GI on 03/10/2024. Colonoscopy
was notable for internal hemorrhoid tissue that was very friable and bleeding. An echocardiogram was performed and notable for aortic stenosis with a mean aortic valve gradient of 18 mmHg. A multidisciplinary discussion was undertaken involving
urology and GI services. The decision was made to proceed with coronary angiography
ACCESS: Unsuccessful right radial access. Arterial access was obtained twice with micropuncture needle, however, guidewire could not be advanced distally without significant spasm. Arterial access was then obtained in the right common femoral
artery using ultrasound guidance and micropuncture technique. A 6 Dutch sheath was implanted.
HEMODYNAMICS (mmHg):
AO (s/d) : 159/67
CORONARY FINDINGS
Dominance: Right
LEFT MAIN: Normal
LEFT ANTERIOR DESCENDING: The LAD arises normally from the left main and runs in the anterior interventricular groove. The LAD is moderate to heavily calcified in its midportion near the origin of the sizable first septal hospital account liaison. The proximal
LAD has a 60-70% stenosis. The mid LAD beyond the first diagonal branch has a sequential heavily calcified 90% stenosis and 80% stenosis. The mid to distal LAD has a 60% stenosis. The first diagonal branch arises from the proximal one third of
the LAD and has an 80% ostial stenosis
CIRCUMFLEX: The circumflex is a medium caliber nondominant vessel. OM1 arises very proximally from the circumflex. The circumflex has a long 50 to 60% stenosis in the mid vessel terminating in a moderate-large terminal obtuse marginal branch. The
AV continuation of the circumflex terminates in a small posterolateral branch
RIGHT CORONARY: The right coronary artery is a dominant vessel. The ostium of the right coronary artery is calcified with a short segment of calcification extending into the aorta. The true ostium of the RCA does not appear to be significantly
involved. No pressure dampening occurred with engagement of a 6 Dutch diagnostic catheter. The right coronary artery is dominant. Minor irregularities are present over its course
VENTRICULOGRAPHY: Not done
ANGIOPLASTY PROCEDURE DETAIL: Upon review of the diagnostic catheterization the decision was made to proceed with percutaneous revascularization of the high-grade stenosis in the LAD. Intravenous heparin was administered and the ACT was monitored
during the study. A 600 mg loading dose of clopidogrel was given prior to the interventional procedure.
The origin of the left main was cannulated with a 6 Dutch XB 3.5 guiding catheter. A BMW guidewire was advanced across the proximal and mid LAD stenosis and into the distal vessel. A second BMW guidewire was advanced across the ostial stenosis in
the first diagonal branch and into the distal vessel. The initial plan was to perform balloon angioplasty throughout the atherosclerotic segment, however, we encountered significant difficulty when attempting to cross the heavily calcified mid LAD
stenosis. Ultimately, the diagonal wire was abandoned and a GuideLiner was advanced into the proximal LAD which fortunately is not supplied enough backup support allowing for delivery of a 2.0 x 12 mm Euphora balloon across the calcified mid LAD
stenosis. The Euphora balloon was inflated to high pressures achieving reasonable balloon expansion. A 2.5 x 15 mm Escobar stent was then advanced over the guidewire and was able to cross the mid LAD stenosis and was positioned across the more distal
lesion. The stent was position with angiographic and fluoroscopic guidance then deployed at nominal pressures. A 2.5 x 38 mm Northwood stent was then advanced over the guidewire and positioned from the proximal to mid LAD covering the entirety of the
diseased segment in the LAD. The proximal to mid LAD stent was deployed at nominal pressures. The entire stented segment was postdilated with a 2.75 mm noncompliant balloon to 12 david distally and 16 to 24 david in the proximal to mid portion of the
Escobar stent with a nice angiographic result.
RADIATION SUMMARY: Fluoro Time (min): 21.6, Dose (mGy): 907.6, DAP (Gy.cm2) : 60.1
CONCLUSIONS
1. Successful stenting of the proximal to mid LAD with a 2.5 x 38 mm Escobar stent that was implanted at nominal pressures and postdilated to high pressures with a 2.75 mm noncompliant balloon. The proximal to midportion of the stent was postdilated
to 22-24 david while the distal edge of the more proximal stent was postdilated to 16-18 david.
2. Successful stenting of the mid LAD with a 2.5 x 15 mm Escobar stent that was implanted at pressures and postdilated to nominal pressures with a 2.75 mm noncompliant balloon
RECOMMENDATIONS
1. Uninterrupted dual antiplatelet therapy for 12 months
2. High intensity statin and aggressive blood pressure control
Copy to: Dr. Julius Thomas
[2024-03-12 15:18] LABS: ACT-LR - POC 236 Seconds (116-155)
[2024-03-12 15:27] LABS: ACT-LR - POC 250 Seconds (116-155)
[2024-03-12 15:50] LABS: ACT-LR - POC 136 Seconds (116-155)
[2024-03-12 15:52] LABS: Glucose - Point of Care 244 mg/dl (70-99)
[2024-03-12] MEDS: NOVOLOG FLEXPEN-MODERATE RESISTANCE 3 UNITS SC (16:02)
[2024-03-12] MEDS: MIRALAX PO (17:37)
[2024-03-12] MEDS: TYLENOL 650 MG PO (17:53)
[2024-03-12] MEDS: LIPITOR 20 MG PO (17:54)
[2024-03-12 18:48] LABS: Glucose - Point of Care 172 mg/dl (70-99)
[2024-03-12] MEDS: NOVOLOG FLEXPEN 8 UNITS SC (18:48)
[2024-03-12] MEDS: NOVOLOG FLEXPEN-MODERATE RESISTANCE 1 UNITS SC (18:48)
[2024-03-12 20:56] LABS: Glucose - Point of Care 232 mg/dl (70-99)
[2024-03-12] MEDS: LANTUS 0.2 UNITS SC (22:49)
--- NOTE | 2024-03-12 23:26 | PTCARENOTE ---
Pt rec'd in bed with granddaughter at bedside. remained on CBR with right leg straight until 2100(end of bedrest). right groin remains stable at this time. DDI with no palpable hematoma noted. henderson draining yellow urine with some small amt of
sediment noted, no blood or clots. back pain 'under control' after receiving Tylenol on day shift.
[2024-03-13] VITALS (7 sets, daily range): BP systolic 101–123; BP diastolic 57–65; BMI 24.1
--- NOTE | 2024-03-13 04:25 | PTCARENOTE ---
Pt awoken for am labs; right groin stable. Assisted oob to recliner. call yeboah within reach.
[2024-03-13 04:34] LABS: Hematocrit 33.5 % (37.0-47.0); Hemoglobin 11.6 g/dL (12.0-16.0); Mean Corp Hgb Conc. 34.6 g/dL (33.0-37.0); Mean Corpuscular Hgb 29.7 pg (27.0-31.0); Mean Corpuscular Volume 85.9 fL (81.0-99.0); Mean Platelet Volume 10.7 fL (7.4-10.4); Platelet Count 186 10^3/uL (130-400); Red Cell Dist. Width 13.2 % (11.5-14.5); White Blood Cell Count 7.8 10^3/uL (4.8-10.8)
[2024-03-13 04:54] LABS: Blood Urea Nitrogen 14 mg/dl (7-17); Calcium 9.2 mg/dl (8.4-10.2); Carbon Dioxide 27 mmol/L (22-30); Chloride 105 mmol/L (98-107); Estimated Creatinine Clearance 59 ml/min; Glucose 136 mg/dl (70-99); Potassium 3.9 mmol/L (3.5-5.1); Sodium 140 mmol/L (135-145); eGFR > 60.00
[2024-03-13] MEDS: ASPIR LOW (ENTERIC COATED) 81 MG PO (07:49)
[2024-03-13] MEDS: PROTONIX 40 MG PO (07:49)
[2024-03-13] MEDS: LOPRESSOR 12.5 MG PO ×2 (07:49→19:56)
[2024-03-13] MEDS: MIRALAX 17 GRAMS PO (07:49)
[2024-03-13] MEDS: PLAVIX 75 MG PO (07:49)
[2024-03-13] MEDS: DELTASONE 20 MG PO (07:51)
[2024-03-13] MEDS: FLUSH (NSS) 1 FLUSH IV (07:52)
[2024-03-13 07:59] LABS: Glucose - Point of Care 109 mg/dl (70-99)
[2024-03-13] MEDS: NOVOLOG FLEXPEN 5 UNITS SC ×2 (08:02→12:47)
--- NOTE | 2024-03-13 08:36 | W.CARD.POSTP ---
Post PCI Follow Up
Procedure
Procedure/Date: 03/12/24 Successful PCI of the proximal to mid LAD with a 2.5 x 38 mm Cusseta stent, and PCI of the mid LAD with a 2.5 x 15 mm Xience stent
Subjective: denies cp, sob
Site
Site: Femoral with Manual Compression: Right and No ht/bleeding, distal pulses palpable
Tele / EKG
SR no sig ectopy
Labs
03/13/24 04:03
03/13/24 04:03
PT Cancelled 03/09/24 06:36
INR Cancelled 03/09/24 06:36
APTT Cancelled 03/10/24 12:44
Triglycerides 191 mg/dl (10-149) H 03/09/24 06:06
LDL Cholesterol, Calc 68 mg/dl 03/09/24 06:06
VLDL Cholesterol, Calc 38 mg/dl (0-30) H 03/09/24 06:06
HDL Cholesterol 46 mg/dl 03/09/24 06:06
03/08/24
19:18
Iyx-C-Ruxijrpjvdc Pept 156
DAPT Medication
DAPT Medication: Aspirin 81mg daily and Clopidogrel 75 mg daily
Case Management checking simmons: No
Plan
post PCI LAD
f/u DCA 04/01 @ 2pm
[2024-03-13] MEDS: DICLOFENAC 1% TOPICAL GEL 2 GRAM TOPICAL ×4 (08:42→22:43)
[2024-03-13] MEDS: DESENEX/MITRAZOL/ZEASORB 1 APPLIC TOPICAL ×2 (08:42→19:56)
--- NOTE | 2024-03-13 08:43 | W.PN.HOSP.TC ---
Today's Communication/Plan
-
see bold
Assessment / Plan
Assessment / Plan
Gen: continues to remain NAD, Awake and alert, NCAT
Eyes: EOMI, PERRLA, no scleral icterus.
Neck: supple.
CV: RRR, +S1/S2, 1/6 systolic murmur
Resp: CTAB, no rales, wheezes, or rhonchi.
Abd: +BS, soft, NT, ND
Skin: No rashes.
Neuro: continues to remain CN 2-12 intact, non-focal.
Psych: Normal mood and affect.
Echo: Mild concentric left ventricular hypertrophy. Left ventricle is small in size.
Hyperdynamic left ventricular systolic function. Left ventricular ejection
fraction is 74% by Reyes's method. Diastolic function indeterminate.
Normal right ventricular size and function.
Mitral annular calcification. Thickened mitral valve leaflets. Mitral valve
opens normally. Mild mitral regurgitation.
Trileaflet aortic valve. Thickened aortic valve with restricted leaflet motion.
Moderate, Moderate to severe aortic stenosis. Peak/mean gradients across the
aortic valve are 32/18 mmHg. Using an LVOT diameter of 2.1 cm, the KEERTHI =
.99cm2. No aortic regurgitation is seen.
Tricuspid valve opens normally. Mild tricuspid regurgitation. Estimated
pulmonary artery pressure of 22 mmHg, assuming a right atrial pressure of 3
mmHg.
[facility] 03/12/24:
1. Coronary angiography
2. Successful stenting of the proximal to mid LAD with a 2.5 x 38 mm Escobar stent that was implanted at nominal pressures and postdilated to 24 david with a 2.75 mm noncompliant balloon
3. Successful stenting of the mid LAD with a 2.5 x 15 mm Xience stent that was postdilated to nominal pressures with a 2.75 mm noncompliant balloon
Acute NSTEMI:
-trop peaked at 2.030, then trended down
-LDL 68
-was on heparin gtt which was stopped due to hematuria
-Echo above, notable for EF 74%, mild MR, mod-sev , mild TR
-LHC above, 2 stents to proximal and mid LAD placed
-cont ASA/Plavix/BB/statin
Acute hematuria:
-03/10/24 bedside cystoscopy: No gross tumor or mass, diffuse cystitis
-3 way henderson placed and CBI started, now off CBI, henderson with clear urine
-cont Rocephin to complete 5 days (despite UCx with yeast)
Hematochezia:
-Colonoscopy on 03/12/2024 with bleeding internal hemorrhoids
-CRS to possibly do procedure for prolapse and hemorrhoids
-Hb stable
Other problems:
DM2: SSI/accuchecks. cont Lantus/premeal insulin.
Sarcoidosis: Cont Prednisone
Discussed with cardiology and CRS.
DNR/SCDs
Total time spent on today's encounter was 52 minutes which included time spent in counseling the patient/family regarding diagnosis and treatment plan as listed above, goals of care, and symptom management. Case was discussed with nursing staff,
specialists, and care coordinators/case management. All labs and imaging personally reviewed by me. Remainder the time spent in detailed review of previous records, lab data, imaging, and other medical provider documentation.
Anticipated Discharge: 24 - 48 hours
Subjective/Interval History
-
Date of Service: March 13, 2024
Denies CP/SOB.
Objective Data
-
Labs:
Laboratory Results
03/13/24
04:03
WBC 7.8
Hgb 11.6 L
Hct 33.5 L
Plt Count 186
Sodium 140
Potassium 3.9
Chloride 105
Carbon Dioxide 27
BUN 14
Creatinine 0.7
Glucose 136 H
Calcium 9.2
Vital Signs:
Vital Signs
Temp Pulse Resp BP Pulse Ox
97.8 F 62 18 110/65 100
03/13/24 06:38 03/13/24 04:15 03/13/24 06:38 03/13/24 07:49 03/13/24 06:38
I&O
03/12/24 03/13/24 03/14/24
06:59 06:59 06:59
Intake Total 1490 / 1490 312 / 312
Output Total 3250 / 3250 850 / 850
Balance -1760 / -1760 -538 / -538
[2024-03-13] MEDS: NOVOLOG FLEXPEN-MODERATE RESISTANCE SC (08:49)
--- NOTE | 2024-03-13 09:47 | W.PN.CARDCBS ---
Addendum entered and electronically signed by Vik Balderas MD 03/13/24 15:54:
I saw and examined the patient.
The BUSINESS OPERATIONS CONSULTANT or PA's note was reviewed and I agree with the note.
Comment: General: Well developed, well nourished in NAD.
Neck: Supple, no JVD, HJR, carotids +2 B/L, no bruits bilaterally.
Heart: Non displaced PMI, RRR, no murmurs, No S3, S4, no rubs.
Lungs: Scattered rhonchi
Extremities: No clubbing, cyanosis or edema bilaterally.
Neuro: Grossly nonfocal, awake, alert and oriented x3.
Stable cardiology status status post stent. Continue to follow for hematuria or hematochezia. Likely discharge 9/7 AM
Original Note:
Today's Communication / Plan
-
Status post LAD PCI x 2
Continue aspirin and Plavix, follow hemoglobin
No hematochezia or hematuria overnight
Will arrange outpatient cardiac follow-up
Plan for DC in a.m.
Impression / Plan
-
Political Scientist: None, initial consult seen by Dr. Julius Thomas
Assessment:
NSTEMI--Presenting with bandlike chest discomfort on the evening of 03/08/2024 with peak troponin I of 2.030. s/p LAD PCI x2 03/12/24
Hematuria and purulent drainage and inflammation in bladder on bedside cystoscopy on 03/10/24
Hematochezia and BRBPR, internal hemorrhoids
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
Hypertension
Hyperlipidemia
Sarcoidosis
Echocardiogram 03/10/2024: LVEF 74%, Mild LVH, Mild MR, Moderate to severe aortic stenosis. Peak/mean AoV gradients 32/18 mmHg. Using an LVOT diameter of 2.1 cm, the KEERTHI = .99cm2. No AR. Mild TR.
C-scop 03/11/24: Medium sized hemorrhoids were found on perianal exam. The terminal ileum appeared normal. A moderate amount of liquid semi-liquid stool was found in the transverse colon, in the ascending colon and in the cecum, making visualization
difficult. Lavage of the area was performed using copious amounts of sterile water, resulting in clearance with fair visualization. A few small-mouthed diverticula were found in the transverse colon. Bleeding (oozing on contact) internal hemorrhoids
were found during retroflexion. The hemorrhoids were medium-sized and Grade II (internal hemorrhoids that prolapse but reduce spontaneously).
Recommendations/plan:
-Patient presented with chest pain and ruled in for NSTEMI with peak troponin of 2
-Also with hematuria and purulent drainage with evidence of inflammation in bladder by bedside cystoscopy earlier this admission
-Also with hematochezia and evidence of bleeding internal hemorrhoids
-She was cleared from colorectal and urology standpoint to undergo cardiac catheterization 03/12/2024 resulting in LAD PCI x 2
-She has not had bleeding overnight. Hemoglobin 11.6. Continue aspirin, Plavix
-Internal hemorrhoids being treated conservatively for now with steroid cream. She denies further bleeding overnight
-Santiago bag with straw-colored urine, no overt hematuria noted. Continue antibiotics per primary service
-Pain-free overnight. Right groin site soft, clean dry and intact
-Continue Lopressor, Lipitor. LDL 68
-echo with preserved EF and at least mod . will need OP monitoring
-will arrange OP cardiac follow up
-cardiac rehab
-d/w hospitalist, colorectal, nursing
Progress Note - Political Scientist
Subjective
Date of Service: March 13, 2024
No bleeding overnight. Denies chest pain or shortness of breath
Objective
Labs:
03/13/24 04:03
03/13/24 04:03
Labs
Hgb 11.6 g/dL (12.0-16.0) L 03/13/24 04:03
Hct 33.5 % (37.0-47.0) L 03/13/24 04:03
Plt Count 186 10^3/uL (130-400) 03/13/24 04:03
PT Cancelled 03/09/24 06:36
INR Cancelled 03/09/24 06:36
APTT Cancelled 03/10/24 12:44
Sodium 140 mmol/L (135-145) 03/13/24 04:03
Potassium 3.9 mmol/L (3.5-5.1) 03/13/24 04:03
BUN 14 mg/dl (7-17) 03/13/24 04:03
Creatinine 0.7 mg/dL (0.6-1.0) 03/13/24 04:03
Glucose 136 mg/dl (70-99) H 03/13/24 04:03
Vital Signs and I&O:
Vital Signs
Temp Pulse Resp BP Pulse Ox
97.8 F 63 18 110/65 100
03/13/24 06:38 03/13/24 09:30 03/13/24 06:38 03/13/24 07:51 03/13/24 06:38
Vital Signs
Temp Pulse Resp BP Pulse Ox
97.8 F 63 18 110/65 100
03/13/24 06:38 03/13/24 09:30 03/13/24 06:38 03/13/24 07:51 03/13/24 06:38
Intake & Output
03/11/24 03/12/24 03/13/24 03/14/24
07:59 07:59 07:59 07:59
Intake Total 1020 / 1020 1490 / 1490 312 / 312
Output Total 2950 / 2950 3250 / 3250 850 / 850
Balance -1930 / -1930 -1760 / -1760 -538 / -538
Physical Exam
Physical Exam
GEN: No distress, awake, alert, oriented x3
HEENT: supple, anicteric, mmm, EOMI
LUNGS: CTA bilaterally, no wheezes/rales
CV: Reg, S1/S2, 2/6 syst LSB
ABD: soft, BS+, NT/ND
EXT: No cyanosis, clubbing, edema
NEURO: Gross non-focal
SKIN: Warm, pink, dry. No rash. Right groin site soft, clean dry intact
--- NOTE | 2024-03-13 09:55 | PTCARENOTE ---
Received patient at change of shift. Patient was resting in bed. BP 101/63, SB 50s, 100% on room air. Right groin site clean, dry, and intact. Patient moved to chair for breakfast. Denies any chest pain. Patient agrees to call with any changes in
pain. Call yeboah within reach.
--- NOTE | 2024-03-13 11:35 | CM ---
Chart reviewed. Patient is independent of ADLS, lives alone in a [address], [address] [facility], ambulates with a RW and SPC. Plan is for the patient to go to her granddaughters house ([place]). Referral sent to [facility]. Patient will go to her granddaughters house
with [facility].
--- NOTE | 2024-03-13 11:58 | W.PN.CRS1 ---
Today's Communication / Plan
-
No surgery
will sign off
Assessment/Plan
-
83-year-old female with intermittently actively bleeding sizable internal hemorrhoids documented on colonoscopy by GI
Hgb 11.6 from 12.0
-No surgery during this hospitalization.
-Will order hemorrhoid cream
-Given likely long-term anticoagulation, will be a good candidate for outpatient sclerotherapy with Dr. Jimenez. She can follow up after her hospitalization.
- Will sign off, please contact with any further questions
Subjective Data
Subjective Data
Date of Service: March 13, 2024
Patient states she feels well. She has had no further bleeding overnight. She generally has no complaints
Objective Data
-
Vital Signs
Temp Pulse Resp BP Pulse Ox
97.7 F 61 18 110/65 97
03/13/24 11:53 03/13/24 11:30 03/13/24 11:53 03/13/24 07:51 03/13/24 11:53
Intake & Output
03/12/24 03/13/24 03/14/24
06:59 06:59 06:59
Intake Total 1490 / 1490 312 / 312
Output Total 3250 / 3250 850 / 850
Balance -1760 / -1760 -538 / -538
Intake:
Oral fluids 1440 / 1440
IV fluids (Total) 50 / 50 312 / 312
ns 50 / 50 312 / 312
Output:
Urine, Santiago 2750 / 2750 850 / 850
True Urine Output from CBI 500 / 500
Lab Results
03/13/24 04:03
03/13/24 04:03
Physical Exam
-
General: No Acute Distress and AOx3
Abdomen: Soft, Non Distended and Non Tender
[2024-03-13 12:31] LABS: Glucose - Point of Care 297 mg/dl (70-99)
--- NOTE | 2024-03-13 12:34 | W.PN.URO.CBU ---
Today's Communication / Plan
-
ecxpect blood in henderson enciourage fluids if hematuria
Assessment / Plan
-
hematuria -- resolved
urinary retention -- managed by Henderson
Diagnosis
-
Date of Service: March 13, 2024
-
Patient Diagnosis:
Post Op Day:
Patient Diagnosis:
Post Op Day:
Patient Diagnosis: Gross hematuria
Chronic, subtotal urinary retention
UTI
s/p bedside cystoscopy
Post Op Day: 1
Subjective
-
no hematuria in henderson
Objective
-
Vital Signs
Temp Pulse Resp BP Pulse Ox
97.7 F 60 18 113/57 97
03/13/24 11:53 03/13/24 12:00 03/13/24 11:53 03/13/24 11:50 03/13/24 11:53
Intake and Output
03/12/24 03/13/24 03/14/24
06:59 06:59 06:59
Intake Total 1490 / 1490 312 / 312
Output Total 3250 / 3250 850 / 850
Balance -1760 / -1760 -538 / -538
Intake:
Oral fluids 1440 / 1440
IV fluids (Total) 50 / 50 312 / 312
ns 50 / 50 312 / 312
Output:
Urine, Henderson 2750 / 2750 850 / 850
True Urine Output from CBI 500 / 500
Laboratory Results
03/13/24 04:03
03/13/24 04:03
Review of Systems
-
: Difficulty Voiding
Physical Exam
-
General - well developed, well nourished, no acute distress
Chest - clear bilaterally
Abdomen - soft, non-tender, positive bowel sounds, no CVAT, no incisional pain or distention
Genitalia - normal
Rectal - normal
Skin - warm & dry with no rash
Neuro - AOx3, no motor deficits
Extremities - no clubbing, no cyanosis, no edema
Incision - clean, dry
Dressing - clean, dry, intact
Care Review
Data Reviewed
Discussed with: Nursing
[2024-03-13] MEDS: NOVOLOG FLEXPEN-MODERATE RESISTANCE 5 UNITS SC (12:46)
[2024-03-13] MEDS: ROCEPHIN 1000 MG IV (13:46)
[2024-03-13] MEDS: STERILE WATER FOR INJECTION 10 ML IV (13:46)
[2024-03-13 17:20] LABS: Glucose - Point of Care 213 mg/dl (70-99)
[2024-03-13] MEDS: NOVOLOG FLEXPEN 8 UNITS SC (17:21)
[2024-03-13] MEDS: NOVOLOG FLEXPEN-MODERATE RESISTANCE 3 UNITS SC (17:22)
[2024-03-13] MEDS: LIPITOR 20 MG PO (18:15)
[2024-03-13 22:09] LABS: Glucose - Point of Care 199 mg/dl (70-99)
[2024-03-13] MEDS: LANTUS 0.2 UNITS SC (22:44)
--- NOTE | 2024-03-14 00:59 | PTCARENOTE ---
Pt. has no complaints of CP/discomfort, VSS, NSR on the monitor. Right groin site dressing intact, assessment WNL. Santiago draining yellow urine, no blood visible. No BM's. Pt. sleeping.
[2024-03-14 03:02] VITALS: BP 134/67
[2024-03-14 03:21] VITALS: BMI 24.2
[2024-03-14 04:00] LABS: Blood Urea Nitrogen 16 mg/dl (7-17); Calcium 9.7 mg/dl (8.4-10.2); Carbon Dioxide 30 mmol/L (22-30); Chloride 100 mmol/L (98-107); Estimated Creatinine Clearance 52 ml/min; Glucose 217 mg/dl (70-99); Potassium 4.3 mmol/L (3.5-5.1); Sodium 139 mmol/L (135-145); eGFR > 60.00
[2024-03-14 07:22] VITALS: BP 125/67
[2024-03-14 07:27] LABS: Glucose - Point of Care 222 mg/dl (70-99)
--- NOTE | 2024-03-14 07:51 | W.PN.HOSP.TC ---
Today's Communication/Plan
-
d/c after today's rocephin dose.
Assessment / Plan
Assessment / Plan
Gen: NAD, Awake and alert
Eyes: EOMI, PERRLA, no scleral icterus.
Neck: supple.
CV: RRR, +S1/S2, no m/r/g.
Resp: CTAB, no rales, wheezes, or rhonchi.
Abd: +BS, soft, NT, ND
Skin: No rashes.
Neuro: CN 2-12 intact, non-focal.
Psych: Normal mood and affect.
Echo: Mild concentric left ventricular hypertrophy. Left ventricle is small in size.
Hyperdynamic left ventricular systolic function. Left ventricular ejection
fraction is 74% by Reyes's method. Diastolic function indeterminate.
Normal right ventricular size and function.
Mitral annular calcification. Thickened mitral valve leaflets. Mitral valve
opens normally. Mild mitral regurgitation.
Trileaflet aortic valve. Thickened aortic valve with restricted leaflet motion.
Moderate, Moderate to severe aortic stenosis. Peak/mean gradients across the
aortic valve are 32/18 mmHg. Using an LVOT diameter of 2.1 cm, the KEERTHI =
.99cm2. No aortic regurgitation is seen.
Tricuspid valve opens normally. Mild tricuspid regurgitation. Estimated
pulmonary artery pressure of 22 mmHg, assuming a right atrial pressure of 3
mmHg.
[facility] 03/12/24:
1. Coronary angiography
2. Successful stenting of the proximal to mid LAD with a 2.5 x 38 mm Worthington stent that was implanted at nominal pressures and postdilated to 24 david with a 2.75 mm noncompliant balloon
3. Successful stenting of the mid LAD with a 2.5 x 15 mm Xience stent that was postdilated to nominal pressures with a 2.75 mm noncompliant balloon
Acute NSTEMI:
-trop peaked at 2.030, then trended down
-LDL 68
-was on heparin gtt which was stopped due to hematuria
-Echo above, notable for EF 74%, mild MR, mod-sev , mild TR
-LHC above, 2 stents to proximal and mid LAD placed
-cont ASA/Plavix/BB/statin
Acute hematuria:
-03/10/24 bedside cystoscopy: No gross tumor or mass, diffuse cystitis
-3 way henderson placed and CBI started, now off CBI, henderson with clear urine
-cont Rocephin to complete 5 days (despite UCx with yeast) based on findings on cystoscopy
-henderson to remain in place on d/c, voiding trial in 1 week
Hematochezia:
-Colonoscopy on 03/12/2024 with bleeding internal hemorrhoids
-CRS will reevaluate procedure for prolapse and hemorrhoids after discharge
-Hb stable
Other problems:
DM2: SSI/accuchecks. cont Lantus/premeal insulin.
Sarcoidosis: Cont Prednisone
DNR/SCDs
Total time spent on d/c = 33 min. This included today's physical exam, progress note, review of laboratory and diagnostic data, preparation of discharge documents and prescriptions, and discussions about the pt's hospital course and discharge plan
with the patient and other medical donation professional involved in the patient's care.
Anticipated Discharge: Today
Subjective/Interval History
-
Date of Service: March 14, 2024
Denies CP/SOB/abd pain/melena/hematochezia.
Objective Data
-
Labs:
Laboratory Results
03/14/24 03/14/24
03:14 07:21
WBC Pending
Hgb Pending
Hct Pending
Plt Count Pending
Sodium 139
Potassium 4.3
Chloride 100
Carbon Dioxide 30
BUN 16
Creatinine 0.8
Glucose 217 H
Calcium 9.7
Vital Signs:
Vital Signs
Temp Pulse Resp BP Pulse Ox
97.8 F 64 20 134/67 95
03/14/24 07:19 03/14/24 03:02 03/14/24 07:19 03/14/24 03:02 03/14/24 07:19
I&O
03/13/24 03/14/24 03/15/24
06:59 06:59 06:59
Intake Total 312 / 312 480 / 480
Output Total 850 / 850 3400 / 3400
Balance -538 / -538 -2920 / -2920
[2024-03-14] MEDS: NOVOLOG FLEXPEN-MODERATE RESISTANCE 3 UNITS SC ×2 (07:57→11:57)
[2024-03-14] MEDS: HYDROCORTISONE 2.5% OINTMENT 1 APPLIC TOPICAL (07:58)
[2024-03-14] MEDS: DICLOFENAC 1% TOPICAL GEL 2 GRAM TOPICAL ×2 (07:58→11:59)
[2024-03-14] MEDS: DESENEX/MITRAZOL/ZEASORB 1 APPLIC TOPICAL (07:59)
[2024-03-14] MEDS: NOVOLOG FLEXPEN 7 UNITS SC ×2 (08:01→11:58)
[2024-03-14] MEDS: ASPIR LOW (ENTERIC COATED) 81 MG PO (08:01)
[2024-03-14] MEDS: DELTASONE 20 MG PO (08:01)
[2024-03-14] MEDS: PLAVIX 75 MG PO (08:01)
[2024-03-14] MEDS: MIRALAX 17 GRAMS PO (08:01)
[2024-03-14] MEDS: PROTONIX 40 MG PO (08:01)
[2024-03-14] MEDS: LOPRESSOR 12.5 MG PO (08:04)
--- NOTE | 2024-03-14 08:43 | W.PN.CARDCBS ---
Addendum entered and electronically signed by Vik Balderas MD 03/14/24 09:27:
I saw and examined the patient.
The MACHINE APPLICATOR CEMENTER or PA's note was reviewed and I agree with the note.
Comment: General: Well developed, well nourished in NAD.
Stable cardiology status for discharge. No bleeding. Follow-up arranged. Discussed with patient and primary service
Original Note:
Today's Communication / Plan
-
No bleeding overnight
Continue aspirin, Plavix, Lopressor, Lipitor
Cardiac rehab
Outpatient cardiac follow-up arranged
Okay for discharge to home today
Likely check CBC in 1 week
Impression / Plan
-
Ehs Teacher: None, initial consult seen by Dr. Julius Thomas
Assessment:
NSTEMI--Presenting with bandlike chest discomfort on the evening of 03/08/2024 with peak troponin I of 2.030. s/p LAD PCI x2 03/12/24
Hematuria and purulent drainage and inflammation in bladder on bedside cystoscopy on 03/10/24
Hematochezia and BRBPR, internal hemorrhoids
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
Hypertension
Hyperlipidemia
Sarcoidosis
Echocardiogram 03/10/2024: LVEF 74%, Mild LVH, Mild MR, Moderate to severe aortic stenosis. Peak/mean AoV gradients 32/18 mmHg. Using an LVOT diameter of 2.1 cm, the KEERTHI = .99cm2. No AR. Mild TR.
C-scop 03/11/24: Medium sized hemorrhoids were found on perianal exam. The terminal ileum appeared normal. A moderate amount of liquid semi-liquid stool was found in the transverse colon, in the ascending colon and in the cecum, making visualization
difficult. Lavage of the area was performed using copious amounts of sterile water, resulting in clearance with fair visualization. A few small-mouthed diverticula were found in the transverse colon. Bleeding (oozing on contact) internal hemorrhoids
were found during retroflexion. The hemorrhoids were medium-sized and Grade II (internal hemorrhoids that prolapse but reduce spontaneously).
Recommendations/plan:
-No bleeding or CP overnight. Santiago remains in place without clear hematuria, urology to determine if to continue upon DC. Hemoglobin pending this morning. Continue aspirin, Plavix
-Continue Lopressor, Lipitor
-echo with preserved EF and at least mod . will need OP monitoring
-OP cardiac follow up arranged
-cardiac rehab
-ok for DC today from cardiac standpoint
-d/w nursing
ADMIT DATA:
-Patient presented with chest pain and ruled in for NSTEMI with peak troponin of 2
-Also with hematuria and purulent drainage with evidence of inflammation in bladder by bedside cystoscopy earlier this admission
-Also with hematochezia and evidence of bleeding internal hemorrhoids
-She was cleared from colorectal and urology standpoint to undergo cardiac catheterization 03/12/2024 resulting in LAD PCI x 2
Progress Note - Ehs Teacher
Subjective
Date of Service: March 14, 2024
Patient reports no issues overnight. Eager for discharge
Objective
Labs:
03/14/24 03:14
Labs
Hgb 11.6 g/dL (12.0-16.0) L 03/13/24 04:03
Hct 33.5 % (37.0-47.0) L 03/13/24 04:03
Plt Count 186 10^3/uL (130-400) 03/13/24 04:03
PT Cancelled 03/09/24 06:36
INR Cancelled 03/09/24 06:36
APTT Cancelled 03/10/24 12:44
Sodium 139 mmol/L (135-145) 03/14/24 03:14
Potassium 4.3 mmol/L (3.5-5.1) 03/14/24 03:14
BUN 16 mg/dl (7-17) 03/14/24 03:14
Creatinine 0.8 mg/dL (0.6-1.0) 03/14/24 03:14
Glucose 217 mg/dl (70-99) H 03/14/24 03:14
Vital Signs and I&O:
Vital Signs
Temp Pulse Resp BP Pulse Ox
97.8 F 80 20 125/67 95
03/14/24 07:19 03/14/24 08:04 03/14/24 07:19 03/14/24 08:04 03/14/24 07:19
Vital Signs
Temp Pulse Resp BP Pulse Ox
97.8 F 80 20 125/67 95
03/14/24 07:19 03/14/24 08:04 03/14/24 07:19 03/14/24 08:04 03/14/24 07:19
Intake & Output
03/12/24 03/13/24 03/14/24 03/15/24
07:59 07:59 07:59 07:59
Intake Total 1490 / 1490 312 / 312 480 / 480
Output Total 3250 / 3250 850 / 850 3400 / 3400
Balance -1760 / -1760 -538 / -538 -2920 / -2920
Physical Exam
Physical Exam
GEN: No distress, awake, alert, oriented x3. sitting in chair
HEENT: supple, anicteric, mmm, EOMI
LUNGS: CTA bilaterally, no wheezes/rales
CV: Reg, S1/S2, 2/6 syst LSB
ABD: soft, BS+, NT/ND
EXT: No cyanosis, clubbing, edema
NEURO: Gross non-focal
SKIN: Warm, pink, dry. No rash.
[2024-03-14 09:42] LABS: Hematocrit 34.8 % (37.0-47.0); Mean Corp Hgb Conc. 34.5 g/dL (33.0-37.0); Mean Corpuscular Hgb 29.2 pg (27.0-31.0); Mean Corpuscular Volume 84.7 fL (81.0-99.0); Mean Platelet Volume 10.7 fL (7.4-10.4); Platelet Count 218 10^3/uL (130-400); Red Blood Cell Count 4.11 10^6/uL (4.20-5.40); Red Cell Dist. Width 13.1 % (11.5-14.5); White Blood Cell Count 9.4 10^3/uL (4.8-10.8)
[2024-03-14 11:25] VITALS: BP 122/69
[2024-03-14 11:45] LABS: Glucose - Point of Care 206 mg/dl (70-99)
[2024-03-14 12:07] LABS: Glucose - Point of Care 234 mg/dl (70-99)
[2024-03-14] MEDS: FLUSH (NSS) 1 FLUSH IV (13:27)
[2024-03-14] MEDS: ROCEPHIN 1000 MG IV (13:27)
[2024-03-14] MEDS: STERILE WATER FOR INJECTION 10 ML IV (13:27)
--- NOTE | 2024-03-14 13:59 | W.DCSUMMARY ---
Discharge Summary
Discharge Data
Date of Admission: 03/09/24
Date of Discharge: 03/14/24
-
Pending Results: No
Hospital Course
Primary diagnoses:
Non-ST elevation myocardial infarction, Angioplasty with stent to left anterior descending x 2
Acute hematuria
Hematochezia due to bleeding internal hemorrhoids
Secondary diagnoses:
Type 2 diabetes mellitus
Sarcoidosis
Consultants:
Cardiology
Neurology
Colorectal surgery
Gastroenterology
Imaging:
Echo: Mild concentric left ventricular hypertrophy. Left ventricle is small in size.
Hyperdynamic left ventricular systolic function. Left ventricular ejection
fraction is 74% by Reyes's method. Diastolic function indeterminate.
Normal right ventricular size and function.
Mitral annular calcification. Thickened mitral valve leaflets. Mitral valve
opens normally. Mild mitral regurgitation.
Trileaflet aortic valve. Thickened aortic valve with restricted leaflet motion.
Moderate, Moderate to severe aortic stenosis. Peak/mean gradients across the
aortic valve are 32/18 mmHg. Using an LVOT diameter of 2.1 cm, the KEERTHI =
.99cm2. No aortic regurgitation is seen.
Tricuspid valve opens normally. Mild tricuspid regurgitation. Estimated
pulmonary artery pressure of 22 mmHg, assuming a right atrial pressure of 3
mmHg.
[facility] 03/12/24:
1. Coronary angiography
2. Successful stenting of the proximal to mid LAD with a 2.5 x 38 mm [place] stent that was implanted at nominal pressures and postdilated to 24 david with a 2.75 mm noncompliant balloon
3. Successful stenting of the mid LAD with a 2.5 x 15 mm Xience stent that was postdilated to nominal pressures with a 2.75 mm noncompliant balloon
83-year-old female presented with chief complaint of chest pain as outlined in the H&P done on admission. Hospital course per problem list:
Acute NSTEMI: The patient's troponin peaked at 2.030, then trended down. LDL 68. The patient was on a heparin gtt which was stopped due to hematuria. Echo above, notable for EF 74%, mild MR, mod-sev , mild TR. LHC above, 2 stents to proximal and
mid LAD placed. The patient was treated with ASA/Plavix/BB/statin.
Acute hematuria: On 03/10/24 the patient had a bedside cystoscopy showing no gross tumor or mass, diffuse cystitis. A [address] way henderson placed and the patient was prophy on CBI. Her urine cleared. Urine culture grew yeast but based on the findings on
cystoscopy she did complete 5 days of Rocephin. Her henderson will remain in place on discharge with a voiding trial in 1 week.
Hematochezia: The patient had hematochezia. She had a colonoscopy on 03/12/2024 with bleeding internal hemorrhoids. She was evaluated colorectal surgery and will be reevaluated for procedure for prolapse and hemorrhoids after discharge. Her
hemoglobin remained stable.
Discharge Plan
-
Patient Disposition: Home (Routine Discharge)
Discharge Diagnosis/Procedures: Non-ST elevation myocardial infarction, Angioplasty with stent to left anterior descending x 2
Condition: Good
Diet: Low Cholesterol and Diabetic, Carb Controlled
Activity: With assistance
Driving Restrictions: Not until seen by your Dr
Blood Work: CBC in 1 week
Other Services: VN and Cardiac Rehab
Stand Alone Forms: DC Instructions- Cath/EP Lab
Referrals:
[facility]Visiting Nurse [Outside] (FAX [phone])
Whit Zavala PA-C [Specified Professional Personl] - 04/01/24 2:00 pm
Domingo Weiss MD [Active] - in less than 1 week (voiding trial)
Gely Youngblood MD [Family Provider] - in less than 1 week
Emilio Jimenez MD [Active] - in one to two weeks
Prescriptions:
New
atorvastatin 20 mg Tablet
20 mg PO QPM Qty: 30 0RF
polyethylene glycol 3350 [HealthyLax] 17 gram Powder In Packet
17 g PO DAILY Qty: 0 0RF
clopidogrel 75 mg Tablet
75 mg PO DAILY Qty: 30 0RF
aspirin 81 mg Tablet,Delayed Release (Dr/Ec)
81 mg PO DAILY Qty: 30 0RF
pantoprazole 40 mg Tablet,Delayed Release (Dr/Ec)
40 mg PO DAILY Qty: 30 0RF
nitroglycerin 0.4 mg Tablet, Sublingual
0.4 mg sublingual [id number] PRN (Reason: chest pain) Qty: 12 0RF
metoprolol tartrate 25 mg Tablet
12.5 mg PO BID Qty: 60 0RF
Continued
calcium carbonate [Tums] 200 mg calcium (500 mg) Tablet,Chewable
200 mg PO TID PRN (Reason: heartburn)
acetaminophen [Pain Reliever ES(acetaminophn)] 500 mg tablet
1,000 mg PO TIDPRN PRN (Reason: mild pain)
insulin aspart U-100 [Novolog FlexPen U-100 Insulin] 100 unit/mL (3 mL) Insulin Pen
8 unit SC QPM
Changed
insulin aspart U-100 [Novolog FlexPen U-100 Insulin] 100 unit/mL (3 mL) Insulin Pen
7 unit SC BID Qty: 0 0RF
Patient Comments:
03/08/24: take for breakfast and lunch
insulin glargine [Lantus Solostar U-100 Insulin] 100 unit/mL (3 mL) Insulin Pen
20 unit SC HS Qty: 0 0RF
Discontinued
prednisone 20 mg Tablet
20 mg PO DAILY
Discharge Orders:
Discharge Patient (As Directed); Ordered 03/14/24
Ordered By: Matt Martinez
Care Plan Goals
Care Plan Goals:
Problem: Readiness for enhanced knowledge related to diagnosis and treatment plan
Goal: Understand your diagnosis and treatment plan needs, including medications if applicable.
Instructions: Know your diagnosis, underlying causes and treatment plan options, including medications if applicable. Consult with your health care team to learn about your diagnosis and treatment plan, including medications if applicable.
Discharge Date and Time
Print Language: ESTONIAN
--- NOTE | 2024-03-14 15:24 | PTCARENOTE ---
patient being D/C to home today. Santiago remains intact and leg bag placed for connivence for patient. granddaughter is a nurse and aware of leg beg plus larger Santiago bag for nights. D/C instructions given to patient and granddaughter, both verbalizes
understanding. INT D/C'd, telemetry D/C'd, personal belongings packed and sent home with patient. D/C to home via wc accompanied by staff.
== END 2024-03-14 16:23 | disposition home health service (06) | DRG 322 ==
LOC: IVU 00:28
PROVIDERS: Internal Medicine; Internal Medicine Gastroenterology; Internal Medicine Interventional Cardiology; Physician Assistant; Registered Nurse; ADMITTING PHYSICIAN Internal Medicine; ATTENDING PHYSICIAN Internal Medicine; EMERGENCY PHYSICIAN Emergency Medicine; FAMILY PHYSICIAN Family Medicine; OTHER PHYSICIAN Internal Medicine Cardiovascular Disease; OTHER PHYSICIAN Specialist; OTHER PHYSICIAN Surgery
PROC: 0TJB8ZZ Inspection of Bladder, Via Natural or Artificial Opening Endoscopic (ICD-10-PCS; 2024-03-10)
PROC: 0DJD8ZZ Inspection of Lower Intestinal Tract, Via Natural or Artificial Opening Endoscopic (ICD-10-PCS; 2024-03-11)
PROC: 027035Z Dilation of Coronary Artery, One Artery with Two Drug-eluting Intraluminal Devices, Percutaneous Approach (ICD-10-PCS; 2024-03-12)
PROC: B2111ZZ Fluoroscopy of Multiple Coronary Arteries using Low Osmolar Contrast (ICD-10-PCS; 2024-03-12)
PROC: 4A023N7 Measurement of Cardiac Sampling and Pressure, Left Heart, Percutaneous Approach (ICD-10-PCS; 2024-03-12)
DX: I21.4 Non-ST elevation (NSTEMI) myocardial infarction (principal); N30.91 Cystitis, unspecified with hematuria; K64.1 Second degree hemorrhoids; E11.9 Type 2 diabetes mellitus without complications; D86.9 Sarcoidosis, unspecified; I10 Essential (primary) hypertension; Z66 Do not resuscitate; R33.8 Other retention of urine; E78.00 Pure hypercholesterolemia, unspecified; M06.9 Rheumatoid arthritis, unspecified; K59.09 Other constipation; K57.30 Diverticulosis of large intestine without perforation or abscess without bleeding; I08.0 Rheumatic disorders of both mitral and aortic valves; Z79.4 Long term (current) use of insulin
CPT/HCPCS: 71046; 80048; 80053; 80061; 81003; 81015; 82962; 83036; 83690; 83880; 84484; 85025; 85027; 85347; 85610; 85730; 87086; 93005; 93306; 93454; 96365; 96375; 99291; C1725; C1769; C1874; C1887; C1894; C9600; Q9967

== ENCOUNTER → 2024-04-30 12:31 | Outpatient (REF) | payer OTHER, SELFPAY ==
[2024-04-30 13:34] LABS: % Basophils 0.3 % (0-2); % Eosinophils 0.4 % (0-6); % Immature Granulocytes 0.7 % (0-0.5); % Lymphocytes 6.2 % (20.5-51.1); % Monocytes 3.6 % (1.7-9.3); % Neutrophils 88.8 % (42.2-75.2); Absolute Immature Granulocytes 0.1 10^3/uL (0-0.05); Absolute Lymphocytes 0.5 10^3/uL (1.2-3.4); Absolute Monocytes 0.3 10^3/uL (0.1-0.6); Absolute Neutrophils 6.7 10^3/uL (1.4-6.5); Hemoglobin 12.1 g/dL (12.0-16.0); Mean Corp Hgb Conc. 33.6 g/dL (33.0-37.0); Mean Corpuscular Hgb 28.7 pg (27.0-31.0); Mean Corpuscular Volume 85.3 fL (81.0-99.0); Mean Platelet Volume 11.5 fL (7.4-10.4); Nucleated Red Blood Cells % 0 %; Platelet Count 211 10^3/uL (130-400); Red Blood Cell Count 4.22 10^6/uL (4.20-5.40); Red Cell Dist. Width 13.9 % (11.5-14.5); White Blood Cell Count 7.6 10^3/uL (4.8-10.8)
[2024-04-30 13:41] LABS: Blood Urea Nitrogen 14 mg/dl (7-17); Calcium 9.6 mg/dl (8.4-10.2); Carbon Dioxide 26 mmol/L (22-30); Chloride 99 mmol/L (98-107); Glucose 411 mg/dl (70-99); Potassium 4.4 mmol/L (3.5-5.1); Sodium 141 mmol/L (135-145); eGFR > 60.00
== END ==
LOC: HWRAD 12:31
PROVIDERS: ATTENDING PHYSICIAN Physician Assistant; FAMILY PHYSICIAN Family Medicine
DX: R10.30 Lower abdominal pain, unspecified (principal); R19.5 Other fecal abnormalities; Z87.19 Personal history of other diseases of the digestive system
CPT/HCPCS: 36415; 74177; 80048; 85025; 87086; Q9967

== ENCOUNTER → 2024-05-21 10:00 | Outpatient (REF) | payer OTHER, SELFPAY ==
[2024-05-21 16:11] LABS: Urine Albumin Negative (Neg - Trace); Urine Bilirubin Negative (Negative); Urine Character Clear (Clear); Urine Color Yellow; Urine Glucose Negative (Negative); Urine Ketone Negative (Negative); Urine Leukocyte Negative (Negative); Urine Nitrite Negative (Negative); Urine Occult Blood Negative (Negative); Urine Specific Gravity 1.015 (<1.030); Urine Urobilinogen Negative (Neg - 1+)
== END ==
LOC: CLAB 10:00
PROVIDERS: ATTENDING PHYSICIAN Specialist
DX: R33.9 Retention of urine, unspecified (principal)
CPT/HCPCS: 81003; 87086

== ENCOUNTER → 2024-08-04 09:56 | Outpatient (REF) | payer OTHER, SELFPAY ==
[2024-08-04 17:39] LABS: Urine Albumin Negative (Neg - Trace); Urine Bilirubin Negative (Negative); Urine Character Very Cloudy (Clear); Urine Color Yellow; Urine Glucose Negative (Negative); Urine Ketone Negative (Negative); Urine Leukocyte 1+ (Negative); Urine Nitrite Negative (Negative); Urine Occult Blood Trace (Negative); Urine Urobilinogen Negative (Neg - 1+)
[2024-08-04 17:56] LABS: Urine Mucus Few; Urine Red Blood Cell 0-2 /HPF (0-2); Urine Squamous Cell 0-2 /LPF (Few)
[2024-08-04 17:57] LABS: Urine Bacteria Many (Negative); Urine White Cell 21-25 /HPF (0-5)
== END ==
LOC: CLAB 09:56
PROVIDERS: ATTENDING PHYSICIAN Specialist
DX: N39.0 Urinary tract infection, site not specified (principal)
CPT/HCPCS: 81003; 81015; 87077; 87086; 87186

== ENCOUNTER 2025-06-05 15:40 | Observation (INO) | payer OTHER, SELFPAY ==
[2025-06-05] VITALS (9 sets, daily range): BP systolic 127–178; BP diastolic 59–95
--- NOTE | 2025-06-05 09:57 | ED.GENMED ---
History of Present Illness
<MITZI Cadena - Last Filed: 06/05/25 14:32>
General
Chief Complaint: Chest Pain
Source: patient
Exam Limitations: none
Time Seen by Provider: 06/05/25 09:52
Nursing documentation reviewed up to this point in time: agreed with
History of Present Illness
History of Present Illness:
85 yr old female presents to the ED for evaluation of chest pain. patient has past medical history of non-ST elevation MA with angioplasty and stent to left anterior descending artery type 2 diabetes sarcoidosis.
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 She reports it resolved when she laid down. No associated shortness of breath, nausea/vomiting, chest pain. This did feel similar to when she had her MA
in the past.
Past History
<MITZI Cadena - Last Filed: 06/05/25 14:32>
Past History
ED Past Medical History: HTN, Hypercholesterolemia, IDDM and Other (Rheumatoid arthritis, GI bleeding, Pleural effusion,)
ED Past Surgical History: Appendectomy and Gynecological (Hysterectomy); Negative Cholecystectomy
Social History
Tobacco: Non-smoker
Alcohol: None
Drug: None
Personal:
Living: alone
Employment: Retired
Family History
Family History: Other (Daughter with colon cancer. Daughter with lung cancer)
Phy Exam
<MITZI Cadena - Last Filed: 06/05/25 14:32>
General Physical Exam
General Presentation: no apparent distress
General age: appears stated age
General Skin: warm and dry
General Habitus: elderly
General Mental: alert
General Hydration: appears well hydrated
Cardiovascular Exam
Cardiovascular Exam: regular rate/rhythm, no murmur and normal peripheral pulses
Pulmonary Exam
Pulmonary Exam: lungs clear and no respiratory distress
Neurological Exam
Neurological Exam: alert and oriented x3
Musculoskeletal Exam
Musculoskeletal Exam: full ROM
Skin Exam
Skin Exam: normal color and warm/dry
Psychiatric Exam
Psychiatric Exam: normal mood/affect
Scores
<MITZI Cadena - Last Filed: 06/05/25 14:32>
Heart Score for Chest Pain Patients
STEMI patient?: Not applicable
Course
<MITZI Cadena - Last Filed: 06/05/25 14:32>
Orders/Labs/Results
Orders:
Orders
06/05/25 09:55
IV Insert/Care/Rem.- Treatment PRN
06/05/25 09:57
Electrocardiogram (*1) Stat
Reason for Study: Other
Other Reason for Exam: chest pain
Cardiac Monitoring- Treatment ONCE
EKG- Treatment ONCE
CR Chest - 2 Views Urgent
Comment:
Reason For Exam: cp
06/05/25 10:03
Complete Blood Count/With Diff Urgent
Comprehensive Metabolic Panel Urgent
Troponin I Urgent
06/05/25 11:37
EKG- Treatment ONCE
06/05/25 12:07
Troponin I Urgent
06/05/25 13:00
Electrocardiogram (*1) Urgent
Reason for Study: Chest Pain
06/05/25 14:26
Aspirin Chewable [Low Strength Aspirin] 243 mg PO NOW STA
06/05/25 14:28
Aspirin Chewable [Low Strength Aspirin] 243 mg .ROUTE .STK-MED ONE
Abnormal Lab Results
06/05/25
10:03
MCHC 32.9 L g/dL
(33.0-37.0)
MPV 10.8 H fL
(7.4-10.4)
Absolute Lymphs (auto) 0.7 L 10^3/uL
(1.2-3.4)
Neutrophils % 78.9 H %
(42.2-75.2)
Lymphocytes % 9.3 L %
(20.5-51.1)
Creatinine 0.5 L mg/dL
(0.6-1.0)
Glucose 191 H mg/dl
(70-99)
AST 13 L U/L
(14-36)
Total Protein 5.6 L g/dl
(6.3-8.2)
06/05/25 10:03
06/05/25 10:03
Vital Signs
Initial and Last Documented VS:
Initial Vital Signs
Pulse Resp Pulse Ox
70 24 98
06/05/25 09:51 06/05/25 09:51 06/05/25 09:51
Last Documented Vital Signs
Temp Pulse Resp BP Pulse Ox
98.1 F 71 21 130/63 93
06/05/25 09:52 06/05/25 13:00 06/05/25 11:45 06/05/25 13:00 06/05/25 11:45
Rehab Office Coordinator consulted with Physician
Rehab Office Coordinator consulted with physician?: Yes
Name of Physician Consulted: Lan
<Sweta Saunders MD - Last Filed: 06/05/25 14:49>
Orders/Labs/Results
Orders:
Orders
06/05/25 09:55
IV Insert/Care/Rem.- Treatment PRN
06/05/25 09:57
Electrocardiogram (*1) Stat
Reason for Study: Other
Other Reason for Exam: chest pain
Cardiac Monitoring- Treatment ONCE
EKG- Treatment ONCE
CR Chest - 2 Views Urgent
Comment:
Reason For Exam: cp
06/05/25 10:03
Complete Blood Count/With Diff Urgent
Comprehensive Metabolic Panel Urgent
Troponin I Urgent
06/05/25 11:37
EKG- Treatment ONCE
06/05/25 12:07
Troponin I Urgent
06/05/25 13:00
Electrocardiogram (*1) Urgent
Reason for Study: Chest Pain
06/05/25 14:26
Aspirin Chewable [Low Strength Aspirin] 243 mg PO NOW STA
06/05/25 14:28
Aspirin Chewable [Low Strength Aspirin] 243 mg .ROUTE .STK-MED ONE
Abnormal Lab Results
06/05/25
10:03
MCHC 32.9 L g/dL
(33.0-37.0)
MPV 10.8 H fL
(7.4-10.4)
Absolute Lymphs (auto) 0.7 L 10^3/uL
(1.2-3.4)
Neutrophils % 78.9 H %
(42.2-75.2)
Lymphocytes % 9.3 L %
(20.5-51.1)
Creatinine 0.5 L mg/dL
(0.6-1.0)
Glucose 191 H mg/dl
(70-99)
AST 13 L U/L
(14-36)
Total Protein 5.6 L g/dl
(6.3-8.2)
06/05/25 10:03
06/05/25 10:03
Vital Signs
Initial and Last Documented VS:
Initial Vital Signs
Pulse Resp Pulse Ox
70 24 98
06/05/25 09:51 06/05/25 09:51 06/05/25 09:51
Last Documented Vital Signs
Temp Pulse Resp BP Pulse Ox
98.1 F 71 21 130/63 93
06/05/25 09:52 06/05/25 13:00 06/05/25 11:45 06/05/25 13:00 06/05/25 11:45
<MITZI Cadena - Last Filed: 06/05/25 14:32>
MDM/Problems Addressed
Differential Diagnosis Includes:
Not limited to ACS muscle pain GERD
MDM/Problems Addressed:
Patient is a 85-year-old female who has history of cardiac stent in 2023 presents to the ER with chest pain that felt similar to her previous and STEMI last year. She has been chest pain-free since however her cardiac troponins though not normal or
minimally elevated. With high risk patient concerning story would recommend admission. Case discussed ED physician.
Stent history:
1. Coronary angiography
2. Successful stenting of the proximal to mid LAD with a 2.5 x 38 mm [place] stent that was implanted at nominal pressures and postdilated to 24 david with a 2.75 mm noncompliant balloon
3. Successful stenting of the mid LAD with a 2.5 x 15 mm Xience stent that was postdilated to nominal pressures with a 2.75 mm noncompliant balloon
<MITZI Cadena - Last Filed: 06/05/25 14:32>
*Radiology
Radiology exam reviewed: radiology read reviewed
*Pulse Oximetry
SaO2: 98
Oxygen Mode of Delivery: Room air
Patient hypoxic: no
*EKG
Interpreted by ED Provider?: Yes
Comparison EKG: no changes
Heart Rate: 68
Rate: normal
Rhythm: sinus
Ischemia: no ischemia
*Critical Care Note
Total Time (30-74mins, 75-104mins- exclusive of procedures): Not Applicable
Data Reviewed
Review of Other/Old Records Reveals: Labs, Operative Reports, Discharge Summary and Other (cath/report )
Source: patient
ED Attending Note
<MITZI Cadena - Last Filed: 06/05/25 14:32>
-
Portions of this chart may have been created with voice recognition software.� Occasional wrong word or��sound alike� substitutions may have occurred due to the inherent limitations of voice recognition software.
<Sweta Saunders MD - Last Filed: 06/05/25 14:49>
ED Attending Note
Patient seen and examined by attending physician: Yes
I performed the substantive portion of visit, reviewed & personally made and approve the management plan that is documented in note by myself or BULMARO.: Yes
ED Attending Note:
Patient appears nontoxic. Heart sounds regular lungs are clear. Given patient's high risk of coronary artery disease and her description of the pain, decision to made to admit patient for possible acute coronary syndrome
Discharge Plan
Departure
Patient Disposition: Admit
Date of Disposition: 06/05/25
Time of Disposition: 14:25
Admit to: Telemetry
Admit to doctor: hospitalist
Presentation/result/management discussed w/ accepting MD/DO: Hospitalist
Patient with high blood pressure during this ER visit?: Yes
Condition: Fair
Covid-19: Not Applicable
Discharge Problem:
Chest pain
Prescriptions:
No Action
calcium carbonate [Tums] 200 mg calcium (500 mg) Tablet,Chewable
400 mg PO TIDPRN PRN (Reason: heartburn)
acetaminophen [Pain Reliever ES(acetaminophn)] 500 mg tablet
1,000 mg PO TIDPRN PRN (Reason: mild pain)
insulin aspart U-100 [Novolog FlexPen U-100 Insulin] 100 unit/mL (3 mL) Insulin Pen
13 unit SC QPM
atorvastatin 20 mg Tablet
20 mg PO QPM Qty: 30 0RF
polyethylene glycol 3350 [HealthyLax] 17 gram Powder In Packet
17 g PO DAILY Qty: 0 0RF
clopidogrel 75 mg Tablet
75 mg PO DAILY Qty: 30 0RF
aspirin 81 mg Tablet,Delayed Release (Dr/Ec)
81 mg PO DAILY Qty: 30 0RF
pantoprazole 40 mg Tablet,Delayed Release (Dr/Ec)
40 mg PO DAILY Qty: 30 0RF
metoprolol tartrate 25 mg Tablet
12.5 mg PO BID Qty: 60 0RF
lidocaine [Salonpas (lidocaine)] 4 % Adhesive Patch,Medicated
1 patch TOPICAL DAILYPRN PRN (Reason: mild pain)
prednisone 20 mg Tablet
20 mg PO SUTUTHSA
alendronate [Fosamax] 70 mg Tablet
70 mg PO QWEEK
sennosides-docusate sodium [Senna-S] 8.6-50 mg Tablet
1 tab-cap PO QPMPRN PRN (Reason: constipation)
loperamide 2 mg Tablet
2 mg PO Q6HPRN PRN (Reason: dirrhea)
tramadol 50 mg Tablet
50 mg PO Q8HPRN PRN (Reason: moderate pain)
bethanechol chloride 25 mg Tablet
25 mg PO BID
folic acid 1 mg Tablet
1 mg PO DAILY
nystatin 100,000 unit/gram Powder
1 applic TOPICAL BID
Preparation H Cream
1 applic ND TIDPRN PRN (Reason: hemorrhiods)
diclofenac sodium [Voltaren] 1 % Gel
4 g TOPICAL DAILY
melatonin 5 mg Tablet
5 mg PO HS
menthol-zinc oxide [Calmoseptine] 0.44-20.6 % Ointment
1 applic TOPICAL DAILYPRN PRN (Reason: buttock)
guaifenesin [Mucinex] 600 mg Tablet Extended Release 12hr
600 mg PO BID
insulin aspart U-100 [Novolog FlexPen U-100 Insulin] 100 unit/mL (3 mL) insulin pen
7 unit SC BID@0800,1200
insulin glargine [Lantus Solostar U-100 Insulin] 100 unit/mL (3 mL) insulin pen
16 unit SC HS
Referrals:
UNKNOWN - PT DOES,NOT KNOW [Family Provider]
Interventions
Interventions:
*Risk Screen - Suicide Last Done: 06/05/25 09:57
*General Assessment Last Done: 06/05/25 09:56
*Neglect/Abuse Screening Last Done: 06/05/25 09:57
*ED- Fall Risk Assessment Last Done: 06/05/25 09:55
*ED COVID-19 Vaccine History Last Done: 06/05/25 09:55
*ED Influenza Vaccine History Last Done: 06/05/25 09:55
ED- Cardiac Assessment Last Done: 06/05/25 09:57
Discharge Date and Time
Print Language: [place] CITIZEN
[2025-06-05 10:10] LABS: Hematocrit 38.3 % (37.0-47.0); Hemoglobin 12.6 g/dL (12.0-16.0); Mean Corp Hgb Conc. 32.9 g/dL (33.0-37.0); Mean Corpuscular Volume 86.5 fL (81.0-99.0); Nucleated Red Blood Cells % 0 %; Platelet Count 182 10^3/uL (130-400); Red Cell Dist. Width 13.2 % (11.5-14.5)
[2025-06-05 10:35] LABS: Troponin I 0.020 ng/ml
[2025-06-05 10:38] LABS: ALT (SGPT) 10 U/L (0-35); AST (SGOT) 13 U/L (14-36); Albumin 3.5 g/dl (3.5-5.0); Alkaline Phosphatase 45 U/L (38-126); Blood Urea Nitrogen 12 mg/dl (7-17); Calcium 8.4 mg/dl (8.4-10.2); Carbon Dioxide 28 mmol/L (22-30); Chloride 106 mmol/L (98-107); Estimated Creatinine Clearance 80 ml/min; Glucose 191 mg/dl (70-99); Potassium 3.8 mmol/L (3.5-5.1); Sodium 136 mmol/L (135-145); Total Protein 5.6 g/dl (6.3-8.2); eGFR > 60.00
[2025-06-05 12:43] LABS: Troponin I 0.021 ng/ml
[2025-06-05] MEDS: LOW STRENGTH ASPIRIN 243 MG PO (14:45)
--- NOTE | 2025-06-05 15:12 | HPS.HSE ---
Addendum entered and electronically signed by Pollo Silva MD 06/05/25 16:18:
This is an addendum to H&P written by Gerson Esteban on 06/05/2025. �Patient seen and examined independently with resident.
85-year-old female past medical history of CAD with stents in 2023, moderate to severe aortic stenosis, diabetes, sarcoidosis, hypertension, hyperlipidemia, presenting with chest pain. �Chest pressure yesterday on the left which resolved. �Today was
sharp pain to the left shoulder while dressing up similar to year ago with shortness of breath.
Complains of weight gain. �Trace edema of lower extremities on examination.
Also with ongoing left lower quadrant abdominal pain which is mild and chronic.
Labs showed troponin of 0.02. �EKG normal. �Chest x-ray shows mild cardiomegaly, chronic osteoporotic insufficiency fractures of T12, L1, multiple old posterior lateral rib fractures,
Patient with chest pain concerning for ACS given history of CAD with prior stents in 2023. �Trend troponins, continue aspirin and Plavix, check echo, cardiology consulted. �Check cardiac BNP.
Unclear etiology of chronic left lower quadrant abdominal pain. Outpatient follow up.
Original Note:
Family Physician
-
Family Physician: NOT KNOW UNKNOWN - PT DOES
Chief Complaint
-
Chest pain
History of Present Illness
85-year-old female with history of NSTEMI with angioplasty in 2023, sarcoidosis, hypertension, type 2 diabetes, hyperlipidemia, osteoporosis presents with chest pain. Patient notes that last night she felt some chest pressure on the left side which
resolved. This morning when she was getting ready for breakfast, dressing up, she felt sharp pain on her left shoulder. She reports pain resolved when she laid down. She also felt some short of breath last night. No nausea, vomiting, headache.
Her description. Similar to when she had ME in the past. She denies CP or SOB now. She reports of left lower quadrant pain ongoing for several weeks/months- Denies pain with movement or with bowel movement.
Medical History
Past Medical History
Past Medical History: Reports CVA (in 2023 with stent placement in LAD ) and Other (HTN, Hypercholesterolemia, IDDM and Other (Rheumatoid arthritis, GI bleeding, Pleural effusion,))
Past Surgical History: Reports Other (Appendectomy and Gynecological (Hysterectomy); Negative Cholecystectomy, )
Social History
Tobacco: Non-smoker
Alcohol: None
Drug: None
Personal:
Living: Residential
Employment: Retired
Family History
Family History: Not pertinent
Allergies / Home Medications
Allergies reflects when Allergies were last updated in [employer].
Home Medications with original date entered in [employer]
Allergy/Medication List:
Allergies
Allergy/AdvReac Type Severity Reaction Status Date / Time
adhesive Allergy blisters Verified 03/08/24 19:09
adhesive tape Allergy redness,sor Verified 03/08/24 19:09
e
Home Medications
acetaminophen 500 mg tablet (Pain Reliever Extra Strength (acetaminophen)) 1,000 mg PO TIDPRN PRN mild pain 10/11/22
calcium carbonate (Tums) 400 mg PO TIDPRN PRN heartburn 10/11/22
insulin aspart U-100 100 unit/mL (3 mL) subcutaneous pen (Novolog FlexPen U-100 Insulin aspart) 13 unit SC QPM Diabetes 03/08/24
aspirin 81 mg tablet,delayed release 81 mg PO DAILY #30 tabs 03/14/24
atorvastatin 20 mg tablet 20 mg PO QPM #30 tabs 03/14/24
clopidogrel 75 mg tablet 75 mg PO DAILY #30 tabs 03/14/24
metoprolol tartrate 25 mg tablet 12.5 mg (1/2 x 25 mg) PO BID #60 tabs 03/14/24
pantoprazole 40 mg tablet,delayed release 40 mg PO DAILY #30 tabs 03/14/24
polyethylene glycol 3350 17 gram oral powder packet (HealthyLax) 17 g PO DAILY #0 ea 03/14/24
alendronate 70 mg tablet (Fosamax) 70 mg PO QWEEK 06/05/25
bethanechol chloride 25 mg tablet 25 mg PO BID 06/05/25
diclofenac sodium 1 % topical gel 4 g topical DAILY back area 06/05/25
folic acid 1 mg tablet 1 mg PO DAILY 06/05/25
guaifenesin 600 mg tablet, extended release 12 hr (Mucinex) 600 mg PO BID 06/05/25
insulin aspart U-100 100 unit/mL (3 mL) subcutaneous pen (Novolog FlexPen U-100 Insulin aspart) 7 unit SC BID@0800,1200 Diabetes 06/05/25
insulin glargine 100 unit/mL (3 mL) subcutaneous pen (Lantus Solostar U-100 Insulin) 16 unit SC HS Diabetes 06/05/25
lidocaine 4 % topical patch (Salonpas (lidocaine)) 1 patch topical DAILYPRN PRN mild pain 06/05/25
loperamide 2 mg tablet 2 mg PO Q6HPRN PRN dirrhea 06/05/25
melatonin 5 mg tablet 5 mg PO HS 06/05/25
menthol 0.44 %-zinc oxide 20.6 % topical ointment (Calmoseptine) 1 applic topical DAILYPRN PRN buttock 06/05/25
nystatin 100,000 unit/gram topical powder 1 applic topical BID folds 06/05/25
phenyleph-shark liver [id number] rectal cream 1 applic MA TIDPRN PRN hemorrhiods 06/05/25
prednisone 20 mg tablet 20 mg PO SUTUTHSA 06/05/25
sennosides 8.6 mg-docusate sodium 50 mg tablet (Senna-S) 1 tab-cap PO QPMPRN PRN constipation 06/05/25
tramadol 50 mg tablet 50 mg PO Q8HPRN PRN moderate pain 06/05/25
Review of Systems
-
History Source: Patient
A 12 point ROS was completed and negative except as noted: Yes
Physical Exam
Vital Signs
Vital Signs
Temp Pulse Resp BP Pulse Ox
98.1 F 71 21 130/63 93
06/05/25 09:52 06/05/25 13:00 06/05/25 11:45 06/05/25 13:00 06/05/25 11:45
Physical Exam
General: Comfortable and Conversant
HEENT: NormoCephalic and Anicteric
Respiratory: Clear
Cardiac: S1/S2, Regular Rhythm and Murmur (systolic )
GI: Soft, Non Distended, Normal Bowel Sounds and Tender (mild left LQ)
Musculoskeletal: Other (trace pedal edema bilaterally )
Skin: Warm
Neuro: AO x 3
Hematologic/Lymphatic: No Lymphadenopathy
Psych: Calm
Laboratory Results
-
06/05/25 10:03
06/05/25 10:03
Laboratory Results
Total Bilirubin 0.6 mg/dl (0.2-1.3) 06/05/25 10:03
AST 13 U/L (14-36) L 06/05/25 10:03
ALT 10 U/L (0-35) 06/05/25 10:03
Alkaline Phosphatase 45 U/L (38-126) 06/05/25 10:03
Troponin I 0.021 ng/ml 06/05/25 12:07
Data Reviewed
-
Medical Tests (Nuc Med, Echo, EKG etc): Image Personally Visualized and interpreted, Report Reviewed by me and Discussed with Physician
Lab Data: Labs Reviewed by me and Discussed with Physician
Impression/Plan
-
IMPRESSION:
Chest pain
History of CAD
Moderate to severe aortic stenosis
Chronic left lower quadrant pain
Type 2 diabetes mellitus
History of sarcoidosis
Essential hypertension
Hyperlipidemia
History of osteoporosis
History of GERD
PLAN:
Chest pain
Hemodynamically stable
Suspect stable angina vs stent restenosis
Admit for observation
Cardiology consult
Asymptomatic now
Troponin 0.02, very minimal increase in troponin level.
Trend troponin to peak
Reviewed EKG 06/05/25 : Normal sinus rhythm, no acute changes with ST or T wave as compared to prior EKG
Check echocardiogram
Check BNP
Prior echocardiogram in 2023 showing left ventricular ejection fraction of 74%, thickened mitral valve leaflets, moderate to severe to stenosis.
History of CAD
Continue aspirin and Plavix home dose
Continue Toprol
Moderate to severe aortic stenosis
Repeat echocardiogram
Chronic left lower quadrant pain
Denies nausea, vomiting, fever, chills, normal BM
Monitor the pain for now
If pain increases then will check CT abdomen/pelvis
Type 2 diabetes mellitus
Continue long-acting and mealtime insulin home dose
Sliding scale
check A1c
History of sarcoidosis
Long-term use of prednisone
Continue 20 mg prednisone home dose
Essential hypertension
Continue beta-kamaljit
Hyperlipidemia
Continue Lipitor
Osteoporosis
Continue alendronate
History of GERD
Continue pantoprazole
DNR
Diabetic diet
SCD for DVT prophylaxis
--- NOTE | 2025-06-05 16:37 | CM ---
Chart reviewed and WELLS reviewed with debra Bucio
Spoke with debra on the phone and nurse at [facility]
She is indep with ADLs
Ambulates with RW and w/c
PCP Dr. Tabor
Pharmacy [facility]
DCP is to go back to [facility]
phone number [phone]
CM to follow up for any dcp needs
[2025-06-05 17:08] LABS: Glucose - Point of Care 325 mg/dl (70-99)
[2025-06-05] MEDS: LIPITOR 20 MG PO (17:27)
[2025-06-05] MEDS: DELTASONE 20 MG PO (17:27)
[2025-06-05] MEDS: NOVOLOG FLEXPEN 13 UNITS SC (17:28)
[2025-06-05] MEDS: DESENEX/MITRAZOL/ZEASORB 1 APPLIC TOPICAL (20:06)
[2025-06-05] MEDS: LOPRESSOR 12.5 MG PO (20:07)
[2025-06-05] MEDS: MUCINEX 600 MG PO (20:08)
[2025-06-05] MEDS: URECHOLINE 25 MG PO (20:08)
[2025-06-05 21:20] LABS: Glucose - Point of Care 266 mg/dl (70-99)
[2025-06-05] MEDS: LANTUS 0.13 UNITS SC (21:54)
[2025-06-05] MEDS: MELATONIN 5 MG PO (21:54)
[2025-06-06] VITALS (7 sets, daily range): BP systolic 108–149; BP diastolic 54–102; PULSE 70
[2025-06-06 00:45] LABS: Troponin I < 0.012 ng/ml
[2025-06-06 06:15] LABS: Hematocrit 38.0 % (37.0-47.0); Hemoglobin 12.4 g/dL (12.0-16.0); Mean Corp Hgb Conc. 32.6 g/dL (33.0-37.0); Mean Corpuscular Volume 86.2 fL (81.0-99.0); Platelet Count 198 10^3/uL (130-400); Red Cell Dist. Width 13.0 % (11.5-14.5)
[2025-06-06 06:43] LABS: Blood Urea Nitrogen 14 mg/dl (7-17); Calcium 9.4 mg/dl (8.4-10.2); Carbon Dioxide 32 mmol/L (22-30); Chloride 103 mmol/L (98-107); Estimated Creatinine Clearance 80 ml/min; Glucose 274 mg/dl (70-99); Potassium 4.9 mmol/L (3.5-5.1); Sodium 136 mmol/L (135-145); eGFR > 60.00
[2025-06-06 06:52] LABS: Troponin I < 0.012 ng/ml
[2025-06-06 08:45] LABS: Glucose - Point of Care 274 mg/dl (70-99)
[2025-06-06] MEDS: ASPIR LOW (ENTERIC COATED) 81 MG PO (08:45)
[2025-06-06] MEDS: FOLVITE 1 MG PO (08:45)
[2025-06-06] MEDS: PROTONIX 40 MG PO (08:45)
[2025-06-06] MEDS: PLAVIX 75 MG PO (08:45)
[2025-06-06] MEDS: MUCINEX 600 MG PO ×2 (08:45→20:36)
[2025-06-06] MEDS: LOPRESSOR 12.5 MG PO ×2 (08:46→20:35)
[2025-06-06] MEDS: DICLOFENAC 1% TOPICAL GEL 4 GRAM TOPICAL (08:47)
[2025-06-06] MEDS: DESENEX/MITRAZOL/ZEASORB 1 APPLIC TOPICAL ×2 (08:48→20:32)
[2025-06-06] MEDS: URECHOLINE 25 MG PO ×2 (08:50→20:36)
[2025-06-06 08:51] LABS: Glycohemoglobin (HgbA1c) 8.0 % (4.0-5.9)
[2025-06-06] MEDS: NOVOLOG FLEXPEN 7 UNITS SC ×2 (08:51→17:54)
[2025-06-06] MEDS: NOVOLOG FLEXPEN-LOW RESISTANCE 3 UNITS SC (08:51)
--- NOTE | 2025-06-06 11:43 | CON.CAR ---
Consultation
Consultation Request
Date/Time Consultation Requested: 06/05/2025 1621
Date/Time Consultation Performed: 06/06/2025 1000
Requesting Provider: Ricardo
Performing Provider: Magnus
Reason for Consultation: CP
Medical History
-
Chief Complaint: CP
History of Present Illness:
Patient is a pleasant 85-year-old female with a past medical history significant for hypertension, hyperlipidemia, sarcoidosis, diabetes mellitus type 2, CAD with PCI x 2 to LAD March 2024 in the setting of NSTEMI who presents due to chest
discomfort. She reported it as a chest tightness which started on the right side of her chest and radiated to the left side of her chest. She noted that it occurred while sitting at rest. She reported after 30 minutes it resolved. She denied any
associated shortness of breath, lightheadedness, diaphoresis, PND, orthopnea, edema, or weakness. She states that she is active walking around the room and to the bathroom and with any physical activity and exertion, she denies any chest pain,
shortness of breath, syncope. Patient is a non-smoker, no alcohol, no illicits. Patient stated that the chest discomfort is felt similar to her prior chest discomfort in setting of the NSTEMI which is what prompted her concern and evaluation in
the emergency department. During admission, EKG demonstrated sinus rhythm LVH without significant ST-T abnormality. Troponin negative x 4, BNP mildly elevated at 834. Chest imaging with mild cardiomegaly and atherosclerosis with mild central
distention of pulmonary vasculature but no reported pulmonary edema.
Past Medical History
Past Medical History: Other (See HPI)
Past Surgical History: Other (Hysterectomy, bladder procedures, orthopedics, PCI x2 March 2024)
Social History
Tobacco: Non-Smoker
Alcohol: None
Drug: None
Personal:
Living: Senior Living
Employment: Retired
Family History
Family History: Reviewed & Not Pertinent
Allergies / Home Medications
Allergy/AdvReac Type Severity Reaction Status Date / Time
adhesive Allergy blisters Verified 06/05/25 16:46
adhesive tape Allergy redness,sor Verified 06/05/25 16:46
e
�Medication �Instructions �Recorded �Confirmed �Type
acetaminophen 500 mg tablet (Pain 1,000 mg PO TIDPRN PRN mild pain 10/11/22 06/05/25 History
Reliever Extra Strength
(acetaminophen))
calcium carbonate (Tums) 400 mg PO TIDPRN PRN heartburn 10/11/22 06/05/25 History
insulin aspart U-100 100 unit/mL 13 unit SC QPM Diabetes 03/08/24 06/05/25 History
(3 mL) subcutaneous pen (Novolog
FlexPen U-100 Insulin aspart)
aspirin 81 mg tablet,delayed 81 mg PO DAILY #30 tabs 03/14/24 06/05/25 Rx
release
atorvastatin 20 mg tablet 20 mg PO QPM #30 tabs 03/14/24 06/05/25 Rx
clopidogrel 75 mg tablet 75 mg PO DAILY #30 tabs 03/14/24 06/05/25 Rx
metoprolol tartrate 25 mg tablet 12.5 mg (1/2 x 25 mg) PO BID #60 03/14/24 06/05/25 Rx
tabs
pantoprazole 40 mg tablet,delayed 40 mg PO DAILY #30 tabs 03/14/24 06/05/25 Rx
release
polyethylene glycol 3350 17 gram 17 g PO DAILY #0 ea 03/14/24 06/05/25 Rx
oral powder packet (HealthyLax)
alendronate 70 mg tablet (Fosamax) 70 mg PO QWEEK 06/05/25 06/05/25 History
bethanechol chloride 25 mg tablet 25 mg PO BID 06/05/25 06/05/25 History
diclofenac sodium 1 % topical gel 4 g topical DAILY back area 06/05/25 06/05/25 History
folic acid 1 mg tablet 1 mg PO DAILY 06/05/25 06/05/25 History
guaifenesin 600 mg tablet, 600 mg PO BID 06/05/25 06/05/25 History
extended release 12 hr (Mucinex)
insulin aspart U-100 100 unit/mL 7 unit SC BID@0800,1200 Diabetes 06/05/25 06/05/25 History
(3 mL) subcutaneous pen (Novolog
FlexPen U-100 Insulin aspart)
insulin glargine 100 unit/mL (3 16 unit SC HS Diabetes 06/05/25 06/05/25 History
mL) subcutaneous pen (Lantus
Solostar U-100 Insulin)
lidocaine 4 % topical patch 1 patch topical DAILYPRN PRN mild 06/05/25 06/05/25 History
(Salonpas (lidocaine)) pain
loperamide 2 mg tablet 2 mg PO Q6HPRN PRN dirrhea 06/05/25 06/05/25 History
melatonin 5 mg tablet 5 mg PO HS 06/05/25 06/05/25 History
menthol 0.44 %-zinc oxide 20.6 % 1 applic topical DAILYPRN PRN 06/05/25 06/05/25 History
topical ointment (Calmoseptine) buttock
nystatin 100,000 unit/gram topical 1 applic topical BID folds 06/05/25 06/05/25 History
powder
phenyleph-shark liver 1 applic [place] TIDPRN PRN hemorrhiods 06/05/25 06/05/25 History
ljl-cfehmh-dsz rectal cream
prednisone 20 mg tablet 20 mg PO SUTUTHSA 06/05/25 06/05/25 History
sennosides 8.6 mg-docusate sodium 1 tab-cap PO QPMPRN PRN 06/05/25 06/05/25 History
50 mg tablet (Senna-S) constipation
tramadol 50 mg tablet 50 mg PO Q8HPRN PRN moderate pain 06/05/25 06/05/25 History
Review of Systems
-
History Source: Patient
All other systems: Negative unless noted
Constitutional: No Symptoms
EENT: No Symptoms
Respiratory: No Symptoms
Cardiac: Chest Pain
Abdomen/GI: No Symptoms
: No Symptoms
Musculoskeletal: No Symptoms
Skin: No Symptoms
Neurological: No Symptoms
Endocrine: No Symptoms
Hematologic/Lymphatic: No Symptoms
Physical Exam
Vital Signs
Temp Pulse Resp BP Pulse Ox
97.6 F 69 16 129/73 98
06/06/25 07:29 06/06/25 07:29 06/06/25 07:29 06/06/25 08:46 06/06/25 07:29
Lab Results
06/06/25 06:03
06/06/25 06:03
Troponin I < 0.012 ng/ml 06/06/25 06:03
Loo-K-Sspzsftnxhe Pept 834 pg/ml 06/05/25 23:45
Physical exam:
GENERAL: no acute distress
EYE: sclera anicteric
NECK: Supple, no JVD, no carotid bruit appreciated
ENT: normal nose, moist mucosal membranes
CARDIAC: Regular rate and rhythm, +S1/S2, 3/6 systolic murmur, no rubs, or gallops
CHEST/PULMONARY: Normal effort, clear breath sounds
ABDOMEN: Soft, without focal tenderness or distention
NEUROLOGICAL: Alert and oriented x3
SKIN: Warm and dry, no rash; trace lower extremity edema
PSYCH: Normal and appropriate interaction.
Telemetry shows sinus rhythm with PACs
Impression / Plan
-
Urgent Care Physician: Dr. Julius Thomas
Impression:
Chest pain, atypical
�EKG sinus rhythm, LVH, no significant ST-T abnormality
� Troponin negative x 4
� BNP mildly elevated 834
� Notable history for CAD with PCI to LAD times 09 March 2024
� On aspirin, Plavix; unclear why not on statin
� No further episodes of chest discomfort while inpatient
Aortic stenosis, moderate to severe
� Echo March 2024 shows moderate to severe , preserved EF
CAD with prior PCI
Hypertension
Diabetes mellitus type 2
Hyperlipidemia
Sarcoidosis
History of GI bleed
Recommendations:
� 2D echocardiogram to assess cardiac size, shape, function, and valvular anatomy; this will be better to assess aortic valve and whether it is currently playing a role in her chest discomfort and symptoms.
� Trial of low-dose Lasix to improve lower extremity swelling
� Would start atorvastatin 40 mg daily as no clear documentation as to why patient off statin therapy; it would need this in the setting of her prior stenting/heart disease
� Monitor on telemetry
Data Reviewed
-
EKG: Tracing Personally Visualized and interpreted
Radiology: Report Reviewed by me
Labs: Labs Reviewed by me
Old Records: Reviewed
--- NOTE | 2025-06-06 12:03 | W.PN.HOSP.TC ---
Today's Communication/Plan
-
IV diuresis. Echocardiogram. CT abdomen and pelvis.
Assessment / Plan
Assessment / Plan
Physical exam:
General: Acutely ill
HEENT: Normocephalic, Atraumatic and Moist Mucous Membranes
Respiratory: Clear to Auscultation; Negative Wheezes, Rales or Rhonchi
Cardiac: Regular Rhythm and S1/S2, systolic murmur 3 out of 6
GI: Soft, tender and Nondistended
Musculoskeletal: No Clubbing, No Cyanosis. Bilateral lower extremity edema 1+
Neuro: Awake, Alert and Oriented, no neurological therapy
Psych: Calm
A/P:
Chest pain:
Appears to be atypical chest pain but further workup in progress
Troponin 0.012 x 2
Cardiology consulted and appreciated input
Plan for echocardiogram
Acute on chronic HFpEF and aortic stenosis (moderate to severe):
Started on IV diuresis today
proBNP 834
Continue GDMT
Plan for echocardiogram
Abdominal pain:
Unclear etiology
Obtain CT of the abdomen and pelvis with oral and IV contrast today
CAD:
Continue home anti-ischemic regimen
Hypertension:
Continue home antihypertensive
Hyperlipidemia:
Continue statin
Diabetes mellitus type 2:
Continue diabetic diet
Continue insulin short acting 7 units twice daily and 13 units in the evening
Hemoglobin A1c 8
Continue insulin sliding scale
Sarcoidosis:
Continue oral steroids
DVT prophylaxis:
Start Lovenox SQ
CODE STATUS:
DNR
Total time spent on today's encounter was 52 minutes which included time spent in counseling the patient/family regarding diagnosis and treatment plan as listed above, goals of care, and symptom management. Case was discussed with nursing staff,
specialists, and care coordinators/case management. All labs and imaging personally reviewed by me. Remainder the time spent in detailed review of previous records, lab data, imaging, and other medical provider documentation.
Anticipated Discharge: 24 - 48 hours
Subjective/Interval History
-
Date of Service: June 06, 2025
Patient described having left lower quadrant abdominal pain today bothering her the most. No nausea or vomiting. No chest pain or shortness of breath today but she does have peripheral edema.
Objective Data
-
Labs:
Laboratory Results
06/06/25
06:03
WBC 6.3
Hgb 12.4
Hct 38.0
Plt Count 198
Sodium 136
Potassium 4.9 D
Chloride 103
Carbon Dioxide 32 H
BUN 14
Creatinine 0.6
Glucose 274 H
Calcium 9.4
Vital Signs:
Vital Signs
Temp Pulse Resp BP Pulse Ox
97.6 F 70 18 139/71 98
06/06/25 07:29 06/06/25 11:47 06/06/25 11:47 06/06/25 11:47 06/06/25 07:29
I&O
06/05/25 06/06/25 06/07/25
06:59 06:59 06:59
Output Total 950 / 950
Balance -950 / -950
[2025-06-06] MEDS: OMNIPAQUE 50 ML PO (12:21)
[2025-06-06] MEDS: LASIX 20 MG IV (12:22)
[2025-06-06 12:30] LABS: Glucose - Point of Care 230 mg/dl (70-99)
[2025-06-06] MEDS: NOVOLOG FLEXPEN-LOW RESISTANCE 2 UNITS SC ×2 (12:33→15:45)
[2025-06-06] MEDS: NOVOLOG FLEXPEN SC (15:43)
[2025-06-06] MEDS: NOVOLOG FLEXPEN 13 UNITS SC (15:45)
[2025-06-06] MEDS: DELTASONE 20 MG PO (15:45)
[2025-06-06 15:46] LABS: Glucose - Point of Care 233 mg/dl (70-99)
[2025-06-06] MEDS: LOVENOX 40 MG SC (17:05)
[2025-06-06] MEDS: LIPITOR 20 MG PO (17:05)
[2025-06-06 17:54] LABS: Glucose - Point of Care 237 mg/dl (70-99)
[2025-06-06] MEDS: MELATONIN 5 MG PO (20:38)
[2025-06-06 21:15] LABS: Glucose - Point of Care 177 mg/dl (70-99)
[2025-06-06] MEDS: LANTUS 0.13 UNITS SC (21:17)
[2025-06-07 03:08] VITALS: BP 137/63
[2025-06-07 06:00] VITALS: BMI 30.4
[2025-06-07 07:25] VITALS: BP 185/81
[2025-06-07 07:34] LABS: Hematocrit 39.5 % (37.0-47.0); Hemoglobin 13.2 g/dL (12.0-16.0); Mean Corp Hgb Conc. 33.4 g/dL (33.0-37.0); Mean Corpuscular Volume 86.6 fL (81.0-99.0); Platelet Count 222 10^3/uL (130-400); Red Cell Dist. Width 13.1 % (11.5-14.5)
[2025-06-07 07:34] LABS: Glucose - Point of Care 177 mg/dl (70-99)
[2025-06-07 08:01] LABS: ALT (SGPT) 14 U/L (0-35); AST (SGOT) 15 U/L (14-36); Albumin 4.1 g/dl (3.5-5.0); Alkaline Phosphatase 56 U/L (38-126); Blood Urea Nitrogen 13 mg/dl (7-17); Calcium 9.0 mg/dl (8.4-10.2); Carbon Dioxide 29 mmol/L (22-30); Chloride 101 mmol/L (98-107); Estimated Creatinine Clearance 78 ml/min; Glucose 171 mg/dl (70-99); Potassium 3.5 mmol/L (3.5-5.1); Sodium 136 mmol/L (135-145); Total Protein 6.6 g/dl (6.3-8.2); eGFR > 60.00
--- NOTE | 2025-06-07 08:42 | W.PN.HOSP.TC ---
Today's Communication/Plan
-
Diuresis. Echocardiogram.
Assessment / Plan
Assessment / Plan
Physical exam:
General: No acute distress
HEENT: Normocephalic, Atraumatic and Moist Mucous Membranes
Respiratory: Clear to Auscultation; Negative Wheezes, Rales or Rhonchi
Cardiac: Regular Rhythm and S1/S2, systolic murmur 2 out of 6
GI: Soft, tender and Nondistended
Musculoskeletal: No Clubbing, No Cyanosis. No lower extremity edema today.
Neuro: Awake, Alert and Oriented, no neurological therapy
Psych: Calm
A/P:
Chest pain:
Appears to be atypical chest pain but further workup in progress
Troponin 0.012 x 2
Cardiology consulted and appreciated input
Plan for echocardiogram
PT recommends home health and OT recommends back to assisted living.
Discharge planning once cleared by cardiology
Acute on chronic HFpEF and aortic stenosis (?moderate to severe):
Continue IV Lasix 20 mg daily but suspect can be switched to oral soon
proBNP 834
Continue GDMT
Plan for echocardiogram
Abdominal pain:
Obtained CT of the abdomen and pelvis with oral and IV contrast yesterday and no acute intraabdominal pathology. Feels improved today.
CAD:
Continue home anti-ischemic regimen
Hypertension:
Continue home antihypertensive
Hyperlipidemia:
Continue statin
Diabetes mellitus type 2:
Continue diabetic diet
Continue insulin short acting 7 units twice daily and 13 units in the evening
Hemoglobin A1c 8
Continue insulin sliding scale
Sarcoidosis:
Continue oral steroids
DVT prophylaxis:
Start Lovenox SQ
CODE STATUS:
DNR
Total time spent on today's encounter was 35 minutes which included time spent in counseling the patient/family regarding diagnosis and treatment plan as listed above, goals of care, and symptom management. Case was discussed with nursing staff,
specialists, and care coordinators/case management. All labs and imaging personally reviewed by me. Remainder the time spent in detailed review of previous records, lab data, imaging, and other medical provider documentation.
Anticipated Discharge: Within 24 hours
Subjective/Interval History
-
Date of Service: June 07, 2025
Patient feels better overall. Denies abdominal pain. Denies chest pain.
Objective Data
-
Labs:
Laboratory Results
06/07/25
06:57
WBC 8.2
Hgb 13.2
Hct 39.5
Plt Count 222
Sodium 136
Potassium 3.5 D
Chloride 101
Carbon Dioxide 29
BUN 13
Creatinine 0.6
Glucose 171 H
Calcium 9.0
Total Bilirubin 0.8
AST 15
ALT 14
Alkaline Phosphatase 56
Vital Signs:
Vital Signs
Temp Pulse Resp BP Pulse Ox
97.7 F 65 18 185/81 94
06/07/25 07:25 06/07/25 07:25 06/07/25 07:25 06/07/25 07:25 06/07/25 07:25
I&O
06/06/25 06/07/25 06/08/25
06:59 06:59 06:59
Intake Total 480 / 480
Output Total 950 / 950
Balance -950 / -950 480 / 480
[2025-06-07] MEDS: MUCINEX 600 MG PO (09:03)
[2025-06-07] MEDS: PLAVIX 75 MG PO (09:03)
[2025-06-07] MEDS: ASPIR LOW (ENTERIC COATED) 81 MG PO (09:04)
[2025-06-07] MEDS: PROTONIX 40 MG PO (09:04)
[2025-06-07] MEDS: DICLOFENAC 1% TOPICAL GEL 4 GRAM TOPICAL (09:04)
[2025-06-07] MEDS: FOLVITE 1 MG PO (09:04)
[2025-06-07] MEDS: DESENEX/MITRAZOL/ZEASORB 1 APPLIC TOPICAL (09:05)
[2025-06-07] MEDS: URECHOLINE 25 MG PO (09:05)
[2025-06-07] MEDS: LASIX 20 MG IV (09:06)
[2025-06-07] MEDS: LOPRESSOR 12.5 MG PO (09:06)
[2025-06-07] MEDS: NOVOLOG FLEXPEN 7 UNITS SC ×2 (09:07→12:19)
[2025-06-07] MEDS: NOVOLOG FLEXPEN-LOW RESISTANCE 1 UNITS SC ×2 (09:08→16:25)
[2025-06-07 11:25] VITALS: BP 119/70
[2025-06-07 11:39] LABS: Glucose - Point of Care 205 mg/dl (70-99)
[2025-06-07] MEDS: NOVOLOG FLEXPEN-LOW RESISTANCE 2 UNITS SC (12:18)
--- NOTE | 2025-06-07 12:25 | W.PN.CARDCBS ---
Addendum entered and electronically signed by Kirstin Guzman DO 06/07/25 15:35:
I saw and examined the patient.
The Negative Assembler's note was reviewed and I agree with the note.
Comment: Patient was seen and examined with cardiac PA. She is anxious to go home and feels overall better with improved shortness of breath and lower extremity edema. No chest pain. No dizziness.
General: No acute distress, AAOX3
Heart: Regular, positive S1/S2, 2/6 FILOMENA
Lungs: Bronchovesicular breath sounds decreased but clear
Abd: Positive BS, NT/ND, neg rebound/rigidity/guarding
Ext: No edema
Neuro: nonfocal
Plan:
Acute on chronic heart failure with preserved ejection fraction with moderate to severe aortic stenosis that has progressed since last year
- Serially negative troponins
- Volume status improved with IV Lasix. Recommend Lasix 20 mg 1 p.o. daily at time of discharge
- Patient has had progression of her aortic stenosis. Will arrange outpatient cardiac follow-up for possible TAVR discussions
- Stable for discharge with outpatient cardiac follow-up
Original Note:
Today's Communication / Plan
-
Possible discharge to home later today pending echo report
Recommend Lasix 20 mg PO daily
Impression / Plan
-
Sales Recruiter: Dr. Julius Thomas
Impression:
Admitted with chest pain and acute HF 06/05/2025
Acute on chronic HFpEF
Moderate to severe
Chest pain
CAD
s/p NSTEMI peak troponin 2.030 03/08/24
s/p LAD PCI x2 03/12/24
DM2
Hypertension
Hyperlipidemia
Sarcoidosis
Echo 03/10/2024: LVEF 74%, Mild LVH, Mild MR, Moderate to severe aortic stenosis. Peak/mean AoV gradients 32/18 mmHg. Using an LVOT diameter of 2.1 cm, the KEERTHI = .99cm2. No AR. Mild TR.
Echo 06/07/2025: Report pending
Plan:
-Patient came to the ER with atypical chest pain and serially normal troponin levels. Cardiology saw the patient in consultation and suspected acute HF.
-Initial troponin was 0.020 and then 0.021 and then undetectable x 2 more checks. Chest pain was atypical and suspect most likely a symptom of acute HF.
-Outpatient doses of aspirin and Plavix have been continued. Patient is now 1 year post LAD PCI on 03/12/2024.
-Outpatient dose of atorvastatin 20 mg daily was continued.
-Patient being diuresed with Lasix 20 mg IV daily. Patient was not taking a diuretic prior to admission.
-Patient is being weighed with bed scale even though she is ambulatory. Initial weight from 06/05/2025 was from a stretcher scale in the ER and patient weighed 204 lbs at that time. Weight repeated 06/07/2025 using bed scale and patient is down to
194 lbs. Order for daily weights amended by me on 06/07/2025 so the only standing weights should be recorded.
-I&O not accurate on my review
-Patient reports symptomatic improvement in chest pain and SOB. Recommend Lasix 20 mg PO daily upon discharge to home.
-Echo repeated 06/07/2025 and the report is pending.
-Patient had evidence of moderate to severe by echo 03/10/2024, peak/mean were 32/18 mmHg at that time with an KEERTHI of 0.99 cm2. Reviewed with patient that admission for acute HF may be related to worsening . We talked about possible TAVR in
broad strokes. Patient will need additional testing including cardiac cath, CT scan and evaluation by CT surgeon as an outpatient.
-Patient is anxious for discharge to home 06/07/2025, we will work on obtaining updated echo report and arranging for outpatient follow-up
Progress Note - Sales Recruiter
Subjective
Date of Service: June 07, 2025
Patient reports dramatic symptomatic improvement and wishes to go home
Objective
Labs:
06/07/25 06:57
06/07/25 06:57
Labs
Hgb 13.2 g/dL (12.0-16.0) 06/07/25 06:57
Hct 39.5 % (37.0-47.0) 06/07/25 06:57
Plt Count 222 10^3/uL (130-400) 06/07/25 06:57
Sodium 136 mmol/L (135-145) 06/07/25 06:57
Potassium 3.5 mmol/L (3.5-5.1) D 06/07/25 06:57
BUN 13 mg/dl (7-17) 06/07/25 06:57
Creatinine 0.6 mg/dL (0.6-1.0) 06/07/25 06:57
Glucose 171 mg/dl (70-99) H 06/07/25 06:57
Troponins
06/05/25 06/05/25 06/05/25
10:03 12:07 16:21
Troponin I 0.020 0.021 Cancelled
06/05/25 06/06/25
23:45 06:03
Troponin I < 0.012 < 0.012
Vital Signs and I&O:
Vital Signs
Temp Pulse Resp BP Pulse Ox
97.6 F 70 18 119/70 99
06/07/25 11:25 06/07/25 11:25 06/07/25 11:25 06/07/25 11:25 06/07/25 11:25
Vital Signs
Temp Pulse Resp BP Pulse Ox
97.6 F 70 18 119/70 99
06/07/25 11:06/07/25 11:06/07/25 11:25 06/07/25 11:25 06/07/25 11:25
Intake & Output
06/05/25 06/06/25 06/07/25 06/08/25
06:59 06:59 06:59 06:59
Intake Total 480 / 480
Output Total 950 / 950
Balance -950 / -950 480 / 480
Physical Exam
Physical Exam
GEN: NAD. MONGE x 3
LUNGS: RA. No audible wheeze
CV: SR on telemetry
[2025-06-07] MEDS: IMODIUM 2 MG PO (14:05)
[2025-06-07 15:25] VITALS: BP 111/68
--- NOTE | 2025-06-07 15:42 | CM ---
Addendum entered by Lor Gregg 06/07/25 16:03:
CM spoke with patients granddaughter, Rupinder, will provide payment for WC Van.
Number provided to Rupinder to call, .
Original Note:
CM reviewed chart, patient seen bedside, for d/c today.
CM spoke with nurse at [facility], confirmed ability to accept pt back. CM reviewed PT/OT recommendations for home therapy, will send patient with a script for outpatient PT/OT.
CM spoke with patient regarding transport, does not have her card information with her for wheelchair van.
CM spoke with patients granddaughter, Rupinder, confirmed she does not have patients card with her, to call her cousin, Lucina.
Call to Lucina, does not have patients card information with her. CM inquired if family can transport patient back. Lucina reports she may try to get patients card information from facility and call CM back for WC van transport. Lucina aware CM
leaves at 4:30 p.m. and will contact CM before then to set up transport.
CM will continue to follow for all d/c needs.
Plan; return to [facility], will need script for outpatient PT/OT.
Report: [phone]
[2025-06-07] MEDS: FLUZONE HIGH-DOSE 2025-26 0.5 ML IM (15:58)
[2025-06-07 16:25] LABS: Glucose - Point of Care 175 mg/dl (70-99)
[2025-06-07] MEDS: NOVOLOG FLEXPEN 13 UNITS SC (16:25)
[2025-06-07] MEDS: LIPITOR 20 MG PO (16:26)
[2025-06-07] MEDS: LOVENOX 40 MG SC (16:27)
== END 2025-06-07 18:22 | disposition home or self-care (01) ==
LOC: 4 WEST ACU 15:40
PROVIDERS: Nurse Practitioner; Student in an Organized Health Care Education/Training Program; ADMITTING PHYSICIAN Hospitalist; ATTENDING PHYSICIAN Hospitalist; CONSULT PHYSICIAN Internal Medicine Cardiovascular Disease; EMERGENCY PHYSICIAN Emergency Medicine
DX: I50.33 Acute on chronic diastolic (congestive) heart failure (principal); R07.89 Other chest pain; I25.10 Atherosclerotic heart disease of native coronary artery without angina pectoris; I11.0 Hypertensive heart disease with heart failure; D86.9 Sarcoidosis, unspecified; E11.9 Type 2 diabetes mellitus without complications; I25.2 Old myocardial infarction; Z66 Do not resuscitate; Z79.02 Long term (current) use of antithrombotics/antiplatelets; Z79.899 Other long term (current) drug therapy; Z79.82 Long term (current) use of aspirin; R10.32 Left lower quadrant pain; E78.5 Hyperlipidemia, unspecified; Z79.4 Long term (current) use of insulin; Z79.52 Long term (current) use of systemic steroids; Z95.5 Presence of coronary angioplasty implant and graft; Z23 Encounter for immunization
CPT/HCPCS: 71046; 74177; 80048; 80053; 82962; 83036; 83880; 84484; 85025; 85027; 87070; 90662; 93005; 93306; 97162; 97166; 99285; G0008; G0378; Q9967